=== PATIENT | male | born 1950 | race Caucasian/White ===

== ENCOUNTER → 2016-04-07 | Outpatient (CLI) | payer BC ==
[~2016-04-07] MED LIST: ACET-1256 PO; ASPI-461 PO; ATOR-22 PO; CALC625T13 PO; CHOL1CAP30 PO; CIPR-255 PO; CYM/30 PO; DOCU100C PO; DOXA4TAB2 PO; GABA600T PO; GLUC250C PO; LISI10TA PO; LISI1TAB3 PO; MELO15TA4 PO; METH1TAB66 PO; MULTTAB58 PO; OMEG10007 PO; PHEN-775 PO; ROPI0.5T15 PO; ROPI5TAB9; SIMV20TA2 PO; TAMS0.4C59 PO; TRAM-10 PO; TRAM1TAB14 PO; VGR50 PO; fiber PO
--- NOTE | 2016-04-07 10:07 | DIAGNOSTIC IMAGING REPORT ---
LEFT SHOULDER 3 VIEWS HISTORY: LEFT SHOULDER PAIN COMPARISON: None. FINDINGS: There is no fracture or dislocation. Severe osteoarthritis at the glenohumeral joint demonstrated by cartilage space narrowing and marginal osteophytes. There is moderate AC joint arthrosis. An intra-articular loose body measuring 1.3 cm adjacent to the coracoid process.. No radiopaque foreign bodies. IMPRESSION: 1. No acute fracture or dislocation within the left shoulder. 2. Degenerative changes as described above. Electronically signed by: Moy Chambers M.D. 04/07/2016 10:06 AM Dictated Date/Time: 04/07/2016 10:04 AM
== END | disposition home or self-care (01) ==
LOC: C.RAD1850 09:44
PROVIDERS: ATTEND Family Medicine
DX: M25.512 Pain in left shoulder (principal)

== ENCOUNTER → 2016-07-13 | Outpatient (CLI) | payer BC ==
[~2016-07-13] MED LIST changes: -CALC625T13 PO; -LISI10TA PO; +OPTIRAY 320 IV PRN; -ROPI5TAB9; -TAMS0.4C59 PO
--- NOTE | 2016-07-13 09:59 | DIAGNOSTIC IMAGING REPORT ---
CT UROGRAM CLINICAL HISTORY: Pelvic pain. Left scrotal pain. Chronic prostatitis. COMPARISON STUDY: Abdominal CT dated 04/26/2011. TECHNIQUE: Before and following the IV administration of 119 cc of Optiray 320, CT urogram of the abdomen and pelvis is performed from the lung bases to the proximal femora. Images are reviewed in the axial, sagittal, and coronal planes. IV contrast was administered without complication. CT DOSE: 1998.65 mGy.cm FINDINGS: Lung bases: The heart is normal in size and without pericardial effusion. There are coronary artery calcifications. A fat-containing Bochdalek hernia is noted at the left lung base. The lung bases are otherwise clear. There is a small hiatal hernia. Liver: The contrast-enhanced liver is normal in size, contour, and attenuation. There is no intrahepatic biliary ductal dilatation. The hepatic veins and portal veins are patent. Gallbladder: Unremarkable. Spleen: Normal in size and attenuation. Pancreas: Unremarkable. Adrenal glands: Unremarkable. Kidneys and ureters: The contrast enhanced kidneys are normal in size and without hydronephrosis. There are no renal calculi identified on the unenhanced images. The kidneys enhance and excrete symmetrically. Small renal cysts measure up to 3.0 cm. Additional subcentimeter cortical hypodensities also likely represent cysts but are too small for definitive characterization. There is no enhancing renal cortical mass lesion identified. There is no evidence of urothelial lesion within the renal pelvis bilaterally or along the course of either ureter. The distal ureters are not well evaluated due to streak artifact from hip arthroplasties. Abdominal vasculature: The abdominal aorta is normal in course and caliber. Bowel: The small bowel and colon are normal in course and caliber. The appendix is well-visualized and normal. Peritoneum: There is no intraperitoneal free air or abdominal ascites. There is a small fat-containing umbilical hernia. Lymphadenopathy: None. Pelvic viscera: Evaluation of the pelvis is severely degraded by streak artifact from bilateral hip arthroplasties. Surgical clips are seen along the spermatic cord bilaterally. The bladder, prostate, and seminal vesicles are not well assessed. Skeletal structures: There is moderate lumbosacral spondylosis. Large posterior disc osteophyte complexes at T12-L1, L2-L3, and L3-L4 likely contribute to acquired compromise of the central canal. Degenerative change and partial fusion is noted in the sacroiliac joints. No lytic or blastic bony lesions are seen. IMPRESSION: 1. The kidneys are normal in size and without hydronephrosis. No renal calculi are identified. 2. There is no enhancing renal cortical mass. No evidence of urothelial lesion is seen within the renal pelvis bilaterally or along the course of the ureters. 3. The bladder, prostate, and seminal vesicles were not evaluated due to extensive streak artifact from bilateral hip arthroplasties. 4. There are no acute infectious or inflammatory findings in the abdomen or pelvis. 5. Additional findings as above. Electronically signed by: Randall Gu M.D. 07/13/2016 9:58 AM Dictated Date/Time: 07/13/2016 9:24 AM
== END | disposition home or self-care (01) ==
LOC: C.CTS 08:11
PROVIDERS: ATTEND Urology
DX: R10.2 Pelvic and perineal pain (principal); N41.1 Chronic prostatitis; N50.819 Testicular pain, unspecified; Z96.641 Presence of right artificial hip joint; Z96.642 Presence of left artificial hip joint; M47.817 Spondylosis without myelopathy or radiculopathy, lumbosacral region; M25.78 Osteophyte, vertebrae; K42.9 Umbilical hernia without obstruction or gangrene; N28.1 Cyst of kidney, acquired

== ENCOUNTER → 2016-07-25 | Outpatient (CLI) | payer BC ==
[~2016-07-25] MED LIST changes: -OPTIRAY 320 IV PRN
[2016-07-25 17:11] LABS: BLOOD UREA NITROGEN 19 mg/dl (7-18); BUN/CREATININE RATIO 20.2 (10-20); CALCIUM 9.5 mg/dl (8.5-10.1); CARBON DIOXIDE 29 mmol/L (21-32); CHLORIDE 107 mmol/L (98-107); CREATININE 0.94 mg/dl (0.60-1.40); GLUCOSE 94 mg/dl (70-99); POTASSIUM 4.3 mmol/L (3.5-5.1); SODIUM 142 mmol/L (136-145)
== END | disposition home or self-care (01) ==
LOC: C.LAB1850 15:02
PROVIDERS: ATTEND Internal Medicine
DX: I10 Essential (primary) hypertension (principal)

== ENCOUNTER 2016-09-19 09:04 | Day surgery (SDC) | payer BC ==
[2016-09-11 13:37] VITALS: BMI 32.0
--- NOTE | 2016-09-11 14:03 | PAT Medication Instructions ---
Service Date Sep 11, 2016. Current Home Medication List Acetaminophen (Tylenol), 1,000 MG PO HS Aspirin (Aspirin), 162 MG PO BID Atorvastatin (Lipitor), 20 MG PO HS Cholecalciferol (Vitamin D3), 400 MG PO LUNCH Docusate Sodium (Stool Softener), 300 MG PO HS Doxazosin Mesylate (Cardura), 1 TAB PO HS Duloxetine Hcl (Cymbalta), 60 MG PO HS Fish Oil (Pratts-3), 1,000 MG PO TID Gabapentin (Neurontin), 600 MG PO QID Glucosamine-Chondroitin (Glucosamine/Chondroitin), 1 TAB PO TIDM Lisinopril (Zestril), 30 MG PO QAM Meloxicam (Meloxicam), 15 MG PO QAM Methylcellulose (Laxative) (Fiber Therapy), 500 MG PO QAM Methylcellulose (Laxative) (Fiber Therapy), 1,000 MG PO NOON/HS Multiple Vitamin (Multivitamin), 1 TAB PO QAM Ropinirole (Requip), 0.5 MG PO QPM Sildenafil Citrate (Viagra), 25-50 MG PO PRN Tramadol Er (Ultram Er ), 50-100 MG PO prn Medication Instructions For Your Scheduled Surgery - Held prior to surgery x 10days: Fish Oil (Pratts-3), 1,000 MG PO TID Glucosamine-Chondroitin (Glucosamine/Chondroitin), 1 TAB PO TIDM Aspirin (Aspirin), 162 MG PO BID (per surgeon's instructions) Meloxicam (Meloxicam), 15 MG PO QAM (per surgeon's instructions) - Hold the following medications 24 hours prior to surgery: Ropinirole (Requip), 0.5 MG PO QPM - Hold the following medications the morning of surgery: Methylcellulose (Laxative) (Fiber Therapy), 500 MG PO QAM Cholecalciferol (Vitamin D3), 400 MG PO LUNCH Sildenafil Citrate (Viagra), 25-50 MG PO PRN Multiple Vitamin (Multivitamin), 1 TAB PO QAM Lisinopril (Zestril), 30 MG PO QAM - Take the following medications the morning of surgery with a sip of water OTHERWISE NOTHING TO EAT OR DRINK AFTER MIDNIGHT: Tramadol Er (Ultram Er ), 50-100 MG PO prn (may take if needed up to 4 hours prior to surgery) Gabapentin (Neurontin), 600 MG PO QID - Take the following medications as scheduled the night before surgery: Docusate Sodium (Stool Softener), 300 MG PO HS Doxazosin Mesylate (Cardura), 1 TAB PO HS Duloxetine Hcl (Cymbalta), 60 MG PO HS Atorvastatin (Lipitor), 20 MG PO HS Acetaminophen (Tylenol), 1,000 MG PO HS Tramadol Er (Ultram Er ), 50-100 MG PO prn Gabapentin (Neurontin), 600 MG PO QID Methylcellulose (Laxative) (Fiber Therapy), 1,000 MG PO NOON/HS If you have any questions please call us at [phone] or [phone] or [phone]
--- NOTE | 2016-09-11 14:44 | DIAGNOSTIC IMAGING REPORT ---
CHEST PREADMISSION(PA/LAT) CLINICAL HISTORY: 66 years-old Male presenting with preoperative chest x-ray. TECHNIQUE: PA and lateral views of the chest were obtained. COMPARISON: 06/28/2012. FINDINGS: Cardiomediastinal silhouette normal. Lungs and pleural spaces clear. Degenerative changes of the thoracic spine. Upper abdomen normal. IMPRESSION: 1. No acute cardiopulmonary disease. Electronically signed by: Paul Anderson M.D. 09/11/2016 2:43 PM Dictated Date/Time: 09/11/2016 2:42 PM
[2016-09-11 15:42] LABS: BASO % 0.3 %; BASO ABS # 0.02 K/uL (0-0.2); COMPLETE YES; EOS % 4.1 %; HEMATOCRIT 37.5 % (42-52); IG% 0.4 %; LYMPH % 29.2 %; MEAN CELL VOLUME 95.4 fL (80-100); MEAN CORPUSCULAR HEMOGLOBIN 32.1 pg (25-34); MEAN CORPUSCULAR HGB CONC 33.6 g/dl (32-36); MEAN PLATELET VOLUME 9.5 fL (7.4-10.4); MONO % 8.3 %; NEUT % 57.7 %; PLATELET COUNT 260 K/uL (130-400); RED BLOOD COUNT 3.93 M/uL (4.7-6.1); WHITE BLOOD COUNT 6.84 K/uL (4.8-10.8)
[2016-09-11 15:54] LABS: BUN/CREATININE RATIO 23.9 (10-20); CALCIUM 10.2 mg/dl (8.5-10.1); CREATININE 1.3 mg/dl (0.60-1.40); POTASSIUM 4.9 mmol/L (3.5-5.1)
[2016-09-11 16:16] LABS: URINE APPEARANCE CLEAR (CLEAR); URINE BILIRUBIN NEG (NEG); URINE COLOR YELLOW; URINE EPITHELIAL CELL AUTO >30 /lpf (0-5); URINE NITRITE NEG (NEG); URINE PH 7.5 (4.5-7.5); URINE SPECIFIC GRAVITY 1.016 (1.000-1.030); UROBILINOGEN NEG (NEG)
[2016-09-11 16:41] LABS: MANUAL MICROSCOPIC REQUIRED? NO; REVIEW REQ? YES; SULFASALICYLIC ACID NEG (NEG)
[~2016-09-19] VITALS: Ht 180.3 cm; Wt 103.7 kg
[~2016-09-19 09:04] MED LIST changes: -CIPR-255 PO; +CIPROFLOXACIN / D5W 400 MG IV SCH; +DEXAMETHASONE SOD INJ 4 MG/ML VIAL ONE; +FENTANYL CITRATE INJ 50 MCG/1 ML 2 ML VIAL ONE; +LACTATED RINGER'S 1000ML 1,000 ML IV SCH; +LACTATED RINGER'S 1000ML 500 ML IV ONE; +LIDOCAINE HCL 2% 2 ML VIAL (20MG/ML) ONE; +MIDAZOLAM HCL 1 MG/ML 2ML VIAL ONE; +ONDANSETRON INJ 2 MG/ML 2 ML VIAL ONE; -PHEN-775 PO; +PROPOFOL IV EMULSION 10 MG/ML 20 ML VIAL IV ONE; -SIMV20TA2 PO; -TRAM-10 PO; -fiber PO
--- NOTE | 2016-09-19 09:39 | History & Physical Bridge Note ---
H&P Re-Evaluation Bridge Note: I have examined the patient, reviewed the History & Physical and in the interval since the performance of the History & Physical I have noted the following changes of clinical significance: No changes noted
[2016-09-19 09:47] VITALS: BP 170/79; PULSE 73; TEMP 37.1; O2SAT 98; Ht 180.3 cm; Wt 103.7 kg
--- NOTE | 2016-09-19 10:11 | Discharge Instructions ---
Discharge Instructions Date of Service Sep 19, 2016. Admission Reason for Admission: Bladder Ulcer Discharge Discharge Diagnosis / Problem: bladder pain/ulceration Discharge Goals Goal(s): Decrease discomfort, Improve function, Increase independence, Improve disease control Activity Recommendations Activity Limitations: resume your previous activity Lifting Limitations: none Exercise/Sports Limitations: none May Resume Sexual Activity: when tolerated Shower/Bathe: no limitations Driving or Machine Use: resume 1 day after discharge . Instructions / Follow-Up Instructions / Follow-Up Please keep your previously scheduled follow up appointment with Dr. Smith Discharge Diet Recommended Diet: Regular Diet Pending Studies Studies pending at discharge: no Medical Emergencies . Who to Call and When: Medical Emergencies: If at any time you feel your situation is an emergency, please call 911 immediately. . Non-Emergent Contact Non-Emergency issues call your: Urologist Call Non-Emergent contact if: you have a fever, temperature is above 101.5, your pain is not controlled, your pain is worsening . . "Provider Documentation" section prepared by Bhupinder Abdullahi. . VTE Core Measure Inpt VTE Proph given/why not?: Treatment not indicated [place] Drug Monitoring Program Search Results: patient reviewed within database, no issues identified Drug Monitoring Findings: Numerous rx's for tramadol, all seem to be appropriate
[2016-09-19] MEDS ORDERED: NURSING VERBAL MED ORDER ONE (10:15)
[2016-09-19] MEDS ORDERED: CIPR-255 PO (10:20)
[2016-09-19] MEDS ORDERED: PHEN-775 PO (10:20)
[2016-09-19] MEDS ORDERED: TRAM-10 PO (10:20)
[2016-09-19] MEDS ORDERED: EpHEDrine SULFATE INJ 50 MG/ML AMP ONE (10:26)
[2016-09-19] MEDS ORDERED: TRAMADOL/ACETAMINOPHEN 37.5/325MG TAB PO PRN (10:45)
[2016-09-19] MEDS ORDERED: SODIUM CHLORIDE 0.9% 1000ML 1,000 ML IV SCH (10:45)
[2016-09-19] MEDS ORDERED: ACETAMINOPHEN 325 MG TAB PO PRN (10:45)
--- NOTE | 2016-09-19 10:53 | [facility] Operative Report ---
Operative Report Operative Date Sep 19, 2016. Pre-Operative Diagnosis Bladder lesion Post-Operative Diagnosis Bladder lesion Procedure(s) Performed Cystoscopy, Bladder Biopsy; Fulguration Surgeon Sarah Supervisor Customer Records Division Surgeon(s) none Estimated Blood Loss 2cc Findings Bladder ulcer on anterior wall Specimens A: Bladder Biopsy Anesthesia Gen. Complication(s) None Disposition Recovery Room / PACU Indications Bladder discomfort Description of Procedure Ld Forman was identified in the preoperative holding area, appropriate informed consents were reviewed and completed and the patient was transported to the operating suite. Upon arrival he received appropriate preoperative antibiotics in the form of ciprofloxacin, adequate general anesthesia was achieved, and he was placed in dorsal lithotomy position where he was sterilely prepped and draped in standard fashion. I begin the case by passing a 24 German resectoscope with 30 lens and visual obturator. Inspection of the urethra revealed no stricture disease. Prostate was moderately enlarged with lateral lobe hypertrophy. Section the bladder was carried out utilizing both a 30 and 70 lens. The ulcerated area on anterior bladder wall was easily identified. There was no active bleeding nor papillary bladder tumors appreciated. Following my full inspection I exchanged visual ethylbenzene converter operator for a cold cup biopsy element. 2 c cup biopsies of the ulcerated area were taken. I then exchanged the biopsy device for a cautery loop and fulgurated the base of this lesion. I treated all of the erythematous and ulcerated area and ensured excellent hemostasis before concluding the cystoscopic portion of the case. After confirming excellent hemostasis emptied the bladder and withdrew my scope. Patient was extubated and taken to the PACU in stable condition. I attest to the content of the Intraoperative Record and any orders documented therein. Any exceptions are noted below.
[2016-09-19] MEDS ORDERED: LABETALOL HCL IV 5 MG/ML 20ML IV PRN (11:00)
[2016-09-19] MEDS ORDERED: ATROPINE SULFATE 0.1 MG/ML 5ML SYR IV PRN (11:00)
[2016-09-19] MEDS ORDERED: FENTANYL CITRATE INJ 50 MCG/1 ML 2 ML VIAL IV PRN (11:00)
[2016-09-19] MEDS ORDERED: ONDANSETRON INJ 2 MG/ML 2 ML VIAL IV PRN (11:00)
[2016-09-19 11:35] VITALS: BP 144/84; PULSE 75; TEMP 36.7; O2SAT 93
--- NOTE | 2016-09-19 12:03 | Anesthesiology Progress Note ---
Anesthesia Post Op Note Date & Time Sep 19, 2016 at 12:03 Vital Signs Pain Intensity: 2 Vital Signs Past 12 Hours Date Time Temp Pulse Resp B/P (MAP) Pulse Ox O2 Delivery O2 Flow Rate FiO2 09/19/16 11:30 66 17 141/41 95 Room Air 09/19/16 11:20 36.2 64 12 137/60 93 Room Air 09/19/16 11:10 68 13 114/53 95 Room Air 09/19/16 11:00 61 19 115/59 98 Oxymask 10 09/19/16 10:50 36.4 64 18 119/60 98 Oxymask 10 09/19/16 09:47 37.1 73 18 170/79 (109) 98 Room Air Notes Mental Status: alert / awake / arousable, participated in evaluation Pt Amnestic to Procedure: Yes Nausea / Vomiting: adequately controlled Pain: adequately controlled Airway Patency, RR, SpO2: stable & adequate BP & HR: stable & adequate Hydration State: stable & adequate Anesthetic Complications: no major complications apparent
[2016-09-19 12:10] VITALS: BP 138/71; PULSE 66; TEMP 36.3; O2SAT 95
[2016-09-19 12:55] VITALS: BP 143/67; PULSE 72; TEMP 36.6; O2SAT 93
[2016-09-19 13:50] VITALS: BP 129/58; PULSE 68; TEMP 36.6; O2SAT 92
== END 2016-09-19 14:45 | disposition home or self-care (01) ==
LOC: C.ACU 09:04
PROVIDERS: ATTEND Urology
DX: N30.20 Other chronic cystitis without hematuria (principal); N40.1 Benign prostatic hyperplasia with lower urinary tract symptoms; N13.8 Other obstructive and reflux uropathy; N41.1 Chronic prostatitis; R35.1 Nocturia; R35.0 Frequency of micturition; E78.00 Pure hypercholesterolemia, unspecified; E78.5 Hyperlipidemia, unspecified; Z80.1 Family history of malignant neoplasm of trachea, bronchus and lung; Z82.49 Family history of ischemic heart disease and other diseases of the circulatory system; Z83.3 Family history of diabetes mellitus; Z87.891 Personal history of nicotine dependence; Z79.899 Other long term (current) drug therapy; Z79.82 Long term (current) use of aspirin; Z79.84 Long term (current) use of oral hypoglycemic drugs

== ENCOUNTER → 2017-02-14 | Outpatient (CLI) | payer OTHER ==
[~2017-02-14] MED LIST changes: +CIPR-255 PO; -CIPROFLOXACIN / D5W 400 MG IV SCH; -DEXAMETHASONE SOD INJ 4 MG/ML VIAL ONE; -FENTANYL CITRATE INJ 50 MCG/1 ML 2 ML VIAL ONE; -LACTATED RINGER'S 1000ML 1,000 ML IV SCH; -LACTATED RINGER'S 1000ML 500 ML IV ONE; -LIDOCAINE HCL 2% 2 ML VIAL (20MG/ML) ONE; +LISI-863 PO; -LISI1TAB3 PO; +MELO-83 PO; -MELO15TA4 PO; -MIDAZOLAM HCL 1 MG/ML 2ML VIAL ONE; -ONDANSETRON INJ 2 MG/ML 2 ML VIAL ONE; -PROPOFOL IV EMULSION 10 MG/ML 20 ML VIAL IV ONE; +RXC5 PO; +TRAM-10 PO
== END | disposition home or self-care (01) ==
LOC: C.CTS 12:22
PROVIDERS: ATTEND Orthopaedic Surgery
DX: M19.90 Unspecified osteoarthritis, unspecified site (principal)

== ENCOUNTER 2017-03-16 08:25 | Inpatient (IN) | payer BC, OTHER ==
[2017-02-14 11:31] VITALS: BMI 32.0
--- NOTE | 2017-02-14 12:04 | PAT Medication Instructions ---
Service Date Feb 14, 2017. Current Home Medication List Aspirin (Aspirin), 81 MG PO BID Atorvastatin (Lipitor), 20 MG PO HS Docusate Sodium (Stool Softener), 300 MG PO HS Doxazosin Mesylate (Cardura), 1 TAB PO HS Duloxetine Hcl (Cymbalta), 60 MG PO HS Fish Oil (Douglas-3), 1,000 MG PO TID Gabapentin (Neurontin), 600 MG PO QID Glucosamine-Chondroitin (Glucosamine/Chondroitin), 1 TAB PO BID Lisinopril (Zestril), 30 MG PO QAM Meloxicam (Meloxicam), 15 MG PO QAM Methylcellulose (Laxative) (Fiber Therapy), 500 MG PO QAM Methylcellulose (Laxative) (Fiber Therapy), 1,000 MG PO NOON/HS Multiple Vitamin (Multivitamin), 1 TAB PO QAM Ropinirole (Requip), 2 TAB PO QPM Ropinirole (Requip), 0.5 MG PO HS Medication Instructions For Your Scheduled Surgery - Check with surgeon for instructions: Meloxicam (Meloxicam), 15 MG PO QAM Aspirin (Aspirin), 81 MG PO BID - Hold the following medications 2 weeks prior to surgery: Glucosamine-Chondroitin (Glucosamine/Chondroitin), 1 TAB PO BID Fish Oil (Douglas-3), 1,000 MG PO TID - Hold the following medications 24 hours prior to surgery: Ropinirole (Requip), 2 TAB PO QPM Ropinirole (Requip), 0.5 MG PO HS - Hold the following medications the morning of surgery: Lisinopril (Zestril), 30 MG PO QAM Methylcellulose (Laxative) (Fiber Therapy), 500 MG PO QAM Multiple Vitamin (Multivitamin), 1 TAB PO QAM - Take the following medications the morning of surgery with a sip of water: Gabapentin (Neurontin), 600 MG PO QID - Take the following medications as scheduled the night before surgery: Methylcellulose (Laxative) (Fiber Therapy), 1,000 MG PO NOON/HS Gabapentin (Neurontin), 600 MG PO QID Duloxetine Hcl (Cymbalta), 60 MG PO HS Atorvastatin (Lipitor), 20 MG PO HS Docusate Sodium (Stool Softener), 300 MG PO HS Doxazosin Mesylate (Cardura), 1 TAB PO HS If you have any questions please call us at [phone] or [phone] or [phone]
[2017-02-14 12:56] LABS: BASO % 0.5 %; BASO ABS # 0.03 K/uL (0-0.2); EOS % 6.5 %; EOS ABS # 0.38 K/uL (0-0.5); HEMATOCRIT 39.3 % (42-52); HEMOGLOBIN 13.8 g/dL (14.0-18.0); IG# 0.01 K/uL (0.00-0.02); LYMPH % 35.1 %; LYMPH ABS # 2.04 K/uL (1.2-3.4); MEAN CORPUSCULAR HGB CONC 35.1 g/dl (32-36); MEAN PLATELET VOLUME 9.4 fL (7.4-10.4); MONO % 8.8 %; MONO ABS # 0.51 K/uL (0.11-0.59); NEUT % 48.9 %; NEUT ABS # 2.84 K/uL (1.4-6.5); PLATELET COUNT 243 K/uL (130-400); RED CELL DISTRIBUTION WIDTH CV 12.6 % (11.5-14.5); WHITE BLOOD COUNT 5.81 K/uL (4.8-10.8)
[2017-02-14 13:04] LABS: PTT PATIENT 26.6 SECONDS (21.0-31.0)
[2017-02-14 13:40] LABS: CALCIUM 10.6 mg/dl (8.5-10.1); CREATININE 0.99 mg/dl (0.60-1.40); POTASSIUM 4.8 mmol/L (3.5-5.1)
--- NOTE | 2017-03-15 10:34 | HISTORY & PHYSICAL EXAMINATION ---
DATE OF ADMISSION: 03/16/2017 PREOPERATIVE DIAGNOSIS: Advanced osteoarthritis of the left shoulder. HISTORY OF PRESENT ILLNESS: Ld is a very pleasant 66-year-old male who has been dealing with a 2-year history of increasing left shoulder pain. He initially fell while walking to acquire a loft. 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 X-rays and clinical examination demonstrated an advanced osteoarthritis of the shoulder. After failing conservative treatment, he elected to proceed with a left total shoulder arthroplasty. PAST MEDICAL HISTORY: Significant for heart murmur, hypertension, hyperlipidemia, and osteoarthritis. MEDICATIONS: Include aspirin 81 mg daily, Lipitor 20 mg daily, Cardura 4 mg at night, Cymbalta 60 mg at night, Neurontin 600 mg 4 times a day, glucosamine and chondroitin, Zestril 30 mg daily, meloxicam 15 mg daily, Requip 1 mg at night. PAST SURGICAL HISTORY: Significant for bilateral hip replacements, left total knee arthroplasty and left eye surgery. ALLERGIES: INCLUDE PENICILLIN. FAMILY HISTORY: Denies. SOCIAL HISTORY: He denies any tobacco use. He drinks about 2 alcoholic drinks a week. 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 REVIEW OF SYSTEMS: He complains mostly of left shoulder pain. All other pertinent review of systems is negative. PHYSICAL EXAMINATION: GENERAL: He is awake, alert and oriented x3. He is in no apparent distress. He is very pleasant. HEENT: Pupils are equal, round and reactive to light. Extraocular motion is intact. Oral mucosa is pink and moist. HEART: Regular rate per radial pulse. LUNGS: Queta symmetrically bilaterally with no audible breath sounds. ABDOMEN: Soft, nontender, nondistended. MUSCULOSKELETAL: On physical examination of his shoulder, he has about 125 degrees of forward flexion, 110 degrees of abduction. He has 5/5 muscle strength is full can testing and 5/5 muscle strength with external rotation. He has crepitus with range of motion beyond this. He has tenderness to palpation over the anterior glenohumeral joint line. IMAGING DATA: X-rays of the left shoulder do show advanced osteoarthritis. There is flattening of the humeral head and inferior osteophyte formation. There is joint space narrowing and subchondral sclerosis. IMPRESSION: Advanced osteoarthritis of the left shoulder. PLAN: We will proceed with a left total shoulder arthroplasty. Postoperatively, he will be placed in an arm sling and kept overnight for postoperative medical management.
[2017-03-16] VITALS (8 sets, daily range): BP systolic 134–164; BP diastolic 72–89; PULSE 74–96; TEMP 36.1–37.2; O2SAT 93–98; Ht 177.8 cm; Wt 103.0 kg
[~2017-03-16] VITALS: Ht 177.8 cm; Wt 103.0 kg
[~2017-03-16 08:25] MED LIST changes: -ACET-1256 PO; +ACETAMINOPHEN 500 MG TAB PO SCH; -CHOL1CAP30 PO; -CIPR-255 PO; +FAMOTIDINE 20 MG TAB PO SCH; +GABAPENTIN 300 MG CAP PO SCH; +LACTATED RINGER'S 1000ML 1,000 ML IV SCH; +LACTATED RINGER'S 1000ML IV SCH; -LISI-863 PO; +LISI1TAB3 PO; -MELO-83 PO; +MELO15TA4 PO; +ROPIVACAINE 0.5% 5 MG/ML 30 ML VIAL ONE; +ROPIVACAINE 5MG/ML 30 ML 150 MG, BUPIVACAINE 0.5% MPF INJ 30 ML, EpINEphrine HCL INJ 0.... INFIL SCH; -RXC5 PO; -TRAM-10 PO; -TRAM1TAB14 PO; +VANCOMYCIN INJ 1,500 MG in SODIUM CHLORIDE 0.9% 500ML 500 ML IV SCH; -VGR50 PO
[2017-03-16] MEDS ORDERED: FENTANYL CITRATE INJ 50 MCG/1 ML 2 ML VIAL IV PRN (10:30)
[2017-03-16] MEDS ORDERED: ATROPINE SULFATE 0.1 MG/ML 5ML SYR IV PRN (10:30)
[2017-03-16] MEDS ORDERED: EpHEDrine SULFATE INJ 50 MG/ML AMP IV PRN (10:30)
[2017-03-16] MEDS ORDERED: ONDANSETRON INJ 2 MG/ML 2 ML VIAL IV PRN ×2 (10:30→13:45)
[2017-03-16] MEDS ORDERED: FENTANYL CITRATE INJ 50 MCG/1 ML 2 ML VIAL ONE (10:31)
[2017-03-16] MEDS ORDERED: MIDAZOLAM HCL 1 MG/ML 2ML VIAL ONE (10:31)
[2017-03-16] MEDS ORDERED: BACITRACIN 50000 UNIT VIAL ONE (11:53)
[2017-03-16] MEDS ORDERED: ORTHO JOINT ANESTHETIC ONE (11:53)
[2017-03-16] MEDS: TRANEXAMIC ACID INJ 1,000 MG in SYRINGE 0 ML IV SCH ×2 (11:59→15:45)
[2017-03-16] MEDS ORDERED: EpHEDrine SULFATE 50MG/5ML SYR ONE (12:46)
[2017-03-16] MEDS ORDERED: PHENYLEPHRINE 100MCG/ML 5ML SYR ONE (12:46)
[2017-03-16] MEDS ORDERED: LIDOCAINE HCL 2% 2 ML VIAL (20MG/ML) ONE (12:46)
[2017-03-16] MEDS ORDERED: PROPOFOL IV EMULSION 10 MG/ML 20 ML VIAL IV ONE ×2 (12:46→14:14)
[2017-03-16] MEDS ORDERED: VASOPRESSIN 20 UNIT/ML VIAL ONE (13:00)
[2017-03-16] MEDS ORDERED: ROCURONIUM BROMIDE 10 MG/ML 5 ML VIAL IV ONE (13:00)
--- NOTE | 2017-03-16 13:44 | [facility] Post Operative Brief Note ---
Immediate Operative Summary Operative Date Mar 16, 2017. Pre-Operative Diagnosis Advanced Osteoarthritis Left Shoulder Post-Operative Diagnosis Advanced Osteoarthritis Left Shoulder Procedure(s) Performed Left Total Shoulder Arthroplasty--Cemented Surgeon Dr. Pérez Esol Teacher Assistant Surgeon(s) CONNOR Mock Estimated Blood Loss 200 ml Findings Consistent with Post-Op Diagnosis Specimens A. Portion of Left Humeral Head Drains None Anesthesia Type General Regional Complication(s) none Disposition Disposition: Recovery Room / PACU
[2017-03-16] MEDS ORDERED: MAGNESIUM HYDROXIDE SUSP 30 ML UDC PO PRN (13:45)
[2017-03-16] MEDS ORDERED: METOCLOPRAMIDE HCL INJ 5 MG/ML 2 ML VIAL IV PRN (13:45)
[2017-03-16] MEDS ORDERED: NALOXONE HCL 0.4 MG/1 ML VIAL/CARP IV PRN (13:45)
[2017-03-16] MEDS ORDERED: BISACODYL 10 MG SUPP PR PRN (13:45)
[2017-03-16] MEDS ORDERED: OXYCODONE HCL IR 5 MG TAB (IMMEDIATE RELEASE) PO PRN (13:45)
[2017-03-16] MEDS ORDERED: SOD PHOSPHATE/SOD BIPHOSPHATE ENEMA 132 ML BTL PR PRN (13:45)
[2017-03-16] MEDS ORDERED: MoRPHine SULFATE 2 MG/ML CARP IV PRN (13:45)
[2017-03-16] MEDS ORDERED: CEFAZOLIN IV 2,000 MG in DEXTROSE 5% 50ML 50 ML IV SCH (13:45)
--- NOTE | 2017-03-16 14:05 | OPERATIVE REPORT ---
DATE OF OPERATION: 03/16/2017 PREOPERATIVE DIAGNOSIS: Osteoarthritis of the left shoulder. POSTOPERATIVE DIAGNOSIS: Same. PROCEDURE: Left total shoulder arthroplasty. SURGEON: Dr. Kelton Pérez. FLOOR WINDER: Van Mayres PA-C, whose assistance was necessary for positioning the arm and helping with instrumentation. ANESTHESIA: General with a left interscalene nerve block. COMPLICATIONS: None. CONDITION: Stable to PACU. INDICATIONS: Ld is a pleasant 66-year-old male who presented to my office with chronic left shoulder pain. X-rays and clinical examination were diagnostic for primary osteoarthritis of the left shoulder. After failing conservative treatment, he elected to undergo a left total shoulder arthroplasty. OPERATION AND FINDINGS: On 03/16/2017 he arrived at [facility] for the above procedure. He was seen in the preoperative holding area and the operative extremity was identified and signed. He was given a preoperative antibiotic and a left interscalene nerve block. He was taken back to the operating room, laid on the table in supine position and put under general anesthesia. He was then put into the beachchair position. The left shoulder was prepped and draped in sterile fashion. Time-out was done and the patient and operative extremity was properly identified. A deltopectoral approach was used. Dissection was taken down through the fascia and the anterior shoulder was exposed. The long head of the biceps tendon was tenodesed to the upper border of the pec major and the subscapularis was tenotomized off the lesser tuberosity with a centimeter of cuff tissue remaining. The humerus was dislocated out of the joint. The supraspinatus and infraspinatus were intact. A canal finding reamer was sent down the center of the humeral canal. Sequential reaming up to a size 16 reamer was done and off the final reamer, a proximal humeral resection guide was placed and the proximal humerus was resected at 30 degrees of retroversion and 135 degrees of inclination. The head was removed and the glenoid was exposed. The remainder of the biceps tendon was removed and the anterior superior labrum was removed. The remainder of the labrum was left intact. A [employer] signature guide was then placed on the anterior-superior glenoid. A guide pin was placed in the total shoulder arthroplasty hole. The glenoid measured to be a medium. A medium reamer was used to ream down the glenoid. The central boss was drilled followed by 3 peripheral peg holes. The medium glenoid was then cemented into place. The proximal humerus was then exposed. Sequential broaching up to a size 16 broach was done. A size 50 x 21 mm head was trialed, the shoulder was brought through a full range of motion and seemed to be stable. The trials were then removed, the final size 16 humeral stem was impacted into place. A 50 x 21 mm eccentric humeral head was then impacted on the stem and the shoulder was reduced, brought through a full range of motion and felt to be stable. The subscapularis was then tenodesed back to the lesser tuberosity with transosseous FiberWire sutures and [id number] sutures. The surrounding soft tissues were injected with 100 mL of orthopedic pain control cocktail. The wound was then irrigated with 3 liters of normal saline solution with bacitracin. The axillary nerve was palpated. A drain was placed. Skin was closed with 2-0 Vicryl, 3-0 V-Loc suture and basia. He was placed in a soft dressing and a regular arm sling. He was then extubated, transferred to a litter and taken to the postanesthesia care unit in stable condition. He tolerated the procedure well. I attest to the content of the Intraoperative Record and any orders documented therein. Any exception s are noted below.
--- NOTE | 2017-03-16 14:28 | DIAGNOSTIC IMAGING REPORT ---
LEFT SHOULDER 2 VIEWS. CLINICAL HISTORY: Postoperative examination. FINDINGS: 2 portable views of the left shoulder are obtained. The skeletal structures are osteopenic. A left shoulder arthroplasty is in near-anatomic alignment. No acute fracture is seen. Productive degenerative change is noted at the acromioclavicular joint. There are expected postoperative findings overlying the left shoulder including skin clips, a surgical drain, subcutaneous gas, and soft tissue swelling. IMPRESSION: Expected postoperative findings status post left shoulder arthroplasty. No acute fracture is seen. Electronically signed by: Randall uG M.D. 03/16/2017 2:27 PM Dictated Date/Time: 03/16/2017 2:26 PM
--- NOTE | 2017-03-16 15:00 | Anesthesiology Progress Note ---
Anesthesia Post Op Note Date & Time Mar 16, 2017 at 15:00 Vital Signs Pain Intensity: 0 Vital Signs Past 12 Hours Date Time Temp Pulse Resp B/P (MAP) Pulse Ox O2 Delivery O2 Flow Rate FiO2 03/16/17 14:45 36.4 77 16 154/81 95 Nasal Cannula 2 03/16/17 14:35 73 20 148/81 96 Nasal Cannula 2 03/16/17 14:25 78 20 158/82 98 Oxymask 10 03/16/17 14:15 76 20 134/85 98 Oxymask 10 03/16/17 14:07 36.2 88 20 142/81 98 Oxymask 10 03/16/17 08:54 36.1 93 16 134/87 94 Room Air Notes Mental Status: alert / awake / arousable, participated in evaluation Pt Amnestic to Procedure: Yes Nausea / Vomiting: adequately controlled Pain: adequately controlled Airway Patency, RR, SpO2: stable & adequate BP & HR: stable & adequate Hydration State: stable & adequate Anesthetic Complications: no major complications apparent
[2017-03-16] MEDS: GABAPENTIN 600 MG TAB PO SCH ×2 (17:04→21:14)
[2017-03-16] MEDS: POTASSIUM CHLORIDE INJ 10 MEQ in SODIUM CHLORIDE 0.9% 1000ML 1,000 ML IV SCH (17:04)
[2017-03-16] MEDS: ACETAMINOPHEN IV 1,000 MG in EMPTY BAG 0 ML IV SCH (17:58)
[2017-03-16] MEDS: CEFAZOLIN IV 2,000 MG in SYRINGE 5 ML IV SCH (17:58)
[2017-03-16] MEDS: KETOROLAC TROMETHAMINE 15 MG/ML VIAL IV. SCH ×2 (17:59→23:24)
[2017-03-16] MEDS ORDERED: ROPINIROLE HCL 0.25 MG TAB PO SCH (21:00)
[2017-03-16] MEDS ORDERED: DOXAZosin MESYLATE TAB 4 MG TAB PO SCH (21:00)
[2017-03-16] MEDS ORDERED: SENNA 8.6 MG TAB PO SCH (21:00)
[2017-03-16] MEDS ORDERED: ROPINIROLE HCL 1 MG TAB PO SCH ×2 (21:00)
[2017-03-16] MEDS ORDERED: DULOXETINE HCL 60 MG CAP PO SCH (21:00)
[2017-03-16] MEDS ORDERED: ATORVASTATIN 20 MG TAB PO SCH (21:00)
[2017-03-16] MEDS: ASPIRIN 81 MG ECTAB PO SCH (21:16)
[2017-03-16] MEDS: DOCUSATE SODIUM 100 MG CAP PO SCH (21:17)
[2017-03-17] MEDS: ACETAMINOPHEN IV 1,000 MG in EMPTY BAG 0 ML IV SCH ×2 (02:04→09:52)
[2017-03-17] MEDS: POTASSIUM CHLORIDE INJ 10 MEQ in SODIUM CHLORIDE 0.9% 1000ML 1,000 ML IV SCH (02:04)
[2017-03-17] MEDS: CEFAZOLIN IV 2,000 MG in SYRINGE 5 ML IV SCH (02:04)
[2017-03-17 04:22] VITALS: BP 130/73; PULSE 62; TEMP 36.8; O2SAT 94
[2017-03-17] MEDS: KETOROLAC TROMETHAMINE 15 MG/ML VIAL IV. SCH (05:14)
[2017-03-17 06:11] LABS: HEMATOCRIT 32.6 % (42-52); HEMOGLOBIN 11.2 g/dL (14.0-18.0); MEAN CELL VOLUME 92.6 fL (80-100); MEAN CORPUSCULAR HEMOGLOBIN 31.8 pg (25-34); MEAN CORPUSCULAR HGB CONC 34.4 g/dl (32-36); MEAN PLATELET VOLUME 9.5 fL (7.4-10.4); PLATELET COUNT 226 K/uL (130-400); RED CELL DISTRIBUTION WIDTH CV 12.1 % (11.5-14.5); RED CELL DISTRIBUTION WIDTH SD 41.2 fL (36.4-46.3); WHITE BLOOD COUNT 12.68 K/uL (4.8-10.8)
[2017-03-17 06:40] LABS: CREATININE 1.24 mg/dl (0.60-1.40); POTASSIUM 4.3 mmol/L (3.5-5.1)
[2017-03-17 07:25] VITALS: BP 139/64; PULSE 70; TEMP 36.6; O2SAT 96
[2017-03-17 07:52] VITALS: BP 139/64; PULSE 70; TEMP 36.6; O2SAT 96
[2017-03-17] MEDS: ASPIRIN 81 MG ECTAB PO SCH (08:44)
[2017-03-17] MEDS: GABAPENTIN 600 MG TAB PO SCH (08:44)
[2017-03-17] MEDS: DOCUSATE SODIUM 100 MG CAP PO SCH (08:44)
[2017-03-17] MEDS ORDERED: MULTIVITAMIN TAB PO SCH (09:00)
[2017-03-17] MEDS ORDERED: LISINOPRIL 20 MG TAB PO SCH (09:00)
[2017-03-17] MEDS ORDERED: RXC5 PO (09:45)
--- NOTE | 2017-03-17 09:47 | Discharge Instructions ---
Discharge Instructions Date of Service Mar 17, 2017. Admission Reason for Admission: Left Shoulder Degenerative Joint Disease Discharge Discharge Diagnosis / Problem: Left Total shoulder Discharge Goals Goal(s): Decrease discomfort, Improve function Activity Recommendations Activity Limitations: as noted below . Instructions / Follow-Up Instructions / Follow-Up Activity and Therapy Recommendations: * Wear your sling for 3 weeks, unless otherwise instructed. You may remove your sling to shower and to dress, but otherwise, you should be in your sling at all times, including while sleeping * The shoulder replacement is very stable and you can use your hand while in the sling * Physical Therapy should start about 3-5 days from your day of surgery. Therapy will last about 8-12 weeks * You were shown a series of exercises in the hospital. Do these exercises daily including the exercises you were shown in physical therapy. Medications: * Narcotic You will likely be sent home from the hospital with a prescription for the narcotic pain medication that worked best throughout your stay. * Other medications may be prescribed for specific circumstances. If you have any questions, please call the office at . * Resume previous home medications unless otherwise instructed Showering: You may shower 5 days from the day of surgery. Let the soapy shower water run over the basia. Do not scrub or soak the incision. Things To Watch For: * Drainage from the incision site that occurs more than one week after your surgery. * Increased redness at the incision site. * Fever above 102 degrees Fahrenheit. * Unusual chest pain or shortness of breath. * Call [facility] at with any of the above problems Follow-Up Visit: Follow-up with Dr. Pérez 2 weeks after your day of surgery. An appointment was probably scheduled when you signed-up for surgery in the office. If you have any questions call Office Instructions: More detailed instructions as well as Frequently Asked Questions were provided in a folder by our office when you signed-up for surgery. Please review these instructions when you get home. If you have any further questions or concerns, please feel free to call the office at [phone] Current Hospital Diet Patient's current hospital diet: Regular Diet Discharge Diet Recommended Diet: Regular Diet Procedures Procedures Performed: Left Total Shoulder Arthroplasty--Cemented Pending Studies Studies pending at discharge: no Medical Emergencies . Who to Call and When: Medical Emergencies: If at any time you feel your situation is an emergency, please call 911 immediately. . Non-Emergent Contact Non-Emergency issues call your: Surgeon Call Non-Emergent contact if: wound has increased drainage, wound has increased redness . "Provider Documentation" section prepared by Kelton Pérez. . VTE Core Measure Inpt VTE Proph given/why not?: Treatment not indicated
--- NOTE | 2017-03-17 10:14 | PROGRESS NOTE ---
DATE: 03/17/2017 CHIEF COMPLAINT: Status post left total shoulder arthroplasty, postop day #1. PROGRESS: Ld was seen and examined at bedside today. He was sitting up in the chair and eating breakfast. He has had very little pain in his left shoulder. He is very happy with his progress and has no complaints. PHYSICAL EXAMINATION: LEFT SHOULDER: The dressing is clean and dry and the drain is to suction. His radial, median and ulnar nerves were all checked and intact. He is wearing a sling as instructed. His axillary nerve was not checked yet. LABORATORY DATA: He has an H&H today of 11.2 and 32.6. His vital signs are all stable on room air and he is voiding on his own. X-rays postoperatively of the left shoulder show the prosthesis to be in an alignment without any evidence of fracture, dislocation or loosening. IMPRESSION: Status post left total shoulder arthroplasty, postop day #1. PLAN: At this point, he is doing well and happy with his progress. Therapy will see him today and do hand, wrist, elbow and pendulum exercises. The nursing staff can change the dressing, pull the drain and discharge him home later this morning.
--- NOTE | 2017-03-17 10:31 | DISCHARGE SUMMARY ---
DISCHARGE DIAGNOSIS: Primary osteoarthritis of the left shoulder. PROCEDURE: Left total shoulder arthroplasty on 03/16/[address] Kelton Pérez. DISCHARGE INSTRUCTIONS: 1. Oxycodone 5-10 mg every 4 hours as needed for pain. 2. Aspirin 81 mg daily. 3. Lipitor 20 mg daily. 4. Dulcolax 300 mg at night. 5. Cardura 4 mg daily. 6. Cymbalta 60 mg at night. 7. Neurontin 600 mg 4 times a day. 8. Zestril 30 mg daily. 9. Meloxicam 15 mg daily. 10. Requip 2 tabs in the evening and 1 tab at night. 11. Continue all other vitamin supplementation and bfvv-cei-[id number] medications. 12. Left arm sling for 3 weeks. 13. Follow up with Dr. Pérez in 2 weeks. 14. Call the office of Dr. Pérez with any questions or concerns. HOSPITAL COURSE: Ld is a pleasant 66-year-old male who presented to my office with chronic left shoulder pain. X-rays and clinical examination were diagnostic for primary osteoarthritis of the left shoulder. After failing conservative treatment, he elected to undergo a left total shoulder arthroplasty. On 03/16/2017, he arrived at [facility] and underwent a left shoulder replacement without complication. He had a general anesthetic and a left interscalene nerve block. Postoperatively, he was placed in an arm sling and discharged to general orthopedic floor. His hospital course was uneventful. On postop day #1, his H&H was stable at 11.2 and 32.6. He was up and ambulating well with physical therapy and doing hand, wrist, elbow and pendulum exercises. The nursing staff then changed the dressing, pulled the drain, and he was subsequently discharged to home with the above instructions.
== END 2017-03-17 11:20 | disposition home or self-care (01) | DRG 483 ==
LOC: C.ACU 08:25 → C.3E 08:30 → ENRESERV 14:43
PROVIDERS: ADMIT Orthopaedic Surgery; ATTEND Orthopaedic Surgery
PROC: 0RRK0JZ Replacement of Left Shoulder Joint with Synthetic Substitute, Open Approach (ICD-10-PCS; principal; 2017-03-16 11:10)
DX: M19.012 Primary osteoarthritis, left shoulder (principal); I10 Essential (primary) hypertension; E78.5 Hyperlipidemia, unspecified; Z79.82 Long term (current) use of aspirin; Z79.899 Other long term (current) drug therapy; Z96.643 Presence of artificial hip joint, bilateral; Z96.652 Presence of left artificial knee joint; Z88.0 Allergy status to penicillin

== ENCOUNTER → 2017-09-13 | Outpatient (CLI) | payer OTHER ==
[~2017-09-13] MED LIST changes: -ACETAMINOPHEN 500 MG TAB PO SCH; -FAMOTIDINE 20 MG TAB PO SCH; -GABAPENTIN 300 MG CAP PO SCH; -LACTATED RINGER'S 1000ML 1,000 ML IV SCH; -LACTATED RINGER'S 1000ML IV SCH; +LISI-863 PO; -LISI1TAB3 PO; +MELO-83 PO; -MELO15TA4 PO; -ROPIVACAINE 0.5% 5 MG/ML 30 ML VIAL ONE; -ROPIVACAINE 5MG/ML 30 ML 150 MG, BUPIVACAINE 0.5% MPF INJ 30 ML, EpINEphrine HCL INJ 0.... INFIL SCH; +RXC5 PO; -VANCOMYCIN INJ 1,500 MG in SODIUM CHLORIDE 0.9% 500ML 500 ML IV SCH
== END | disposition home or self-care (01) ==
LOC: C.RDSM 11:01
PROVIDERS: ATTEND Family Medicine
DX: M25.511 Pain in right shoulder (principal)

== ENCOUNTER → 2017-09-24 | Outpatient (CLI) | payer OTHER ==
[2017-09-24 17:34] LABS: BLOOD UREA NITROGEN 14 mg/dl (7-18); CREATININE 0.79 mg/dl (0.60-1.40)
== END | disposition home or self-care (01) ==
LOC: C.LABBC 14:43
PROVIDERS: ATTEND Family Medicine
DX: M75.101 Unspecified rotator cuff tear or rupture of right shoulder, not specified as traumatic (principal)

== ENCOUNTER → 2017-09-26 | Outpatient (CLI) | payer OTHER ==
[~2017-09-26] MED LIST changes: +GADAVIST IV PRN
--- NOTE | 2017-09-26 10:54 | DIAGNOSTIC IMAGING REPORT ---
FLUOROSCOPIC GUIDED RIGHT SHOULDER ARTHROGRAM FLUOROSCOPY TIME: 10 seconds. A single fluoroscopic spot image of the right shoulder. HISTORY: Right shoulder pain.. PROCEDURE: After obtaining written informed consent, the patient was placed supine on the fluoroscopy table. A suitable site for needle insertion was marked using fluoroscopic guidance. The right shoulder was prepped and draped in the usual sterile fashion. 1% lidocaine was used for skin, subcutaneous and deep soft tissue anesthesia. Under intermittent fluoroscopic guidance, a 22 gauge 3.5 inch spinal needle was inserted into the right glenohumeral joint.A total of 14 cc of one-to-one mixture of dilute Gadavist and Optiray 300 were injected. The needle was then removed. There were no apparent complications. The patient was transported to for further imaging. IMPRESSION: Fluoroscopic-guided right shoulder arthrogram without immediate complication. Total injected volume was 14 cc. MR portion of the examination will be dictated separately. Electronically signed by: Moy Chambers M.D. 09/26/2017 10:53 AM Dictated Date/Time: 09/26/2017 10:53 AM
--- NOTE | 2017-09-26 11:51 | DIAGNOSTIC IMAGING REPORT ---
RIGHT SHOULDER MRI with INTRA-ARTICULAR CONTRAST HISTORY: RT SHOULDER PAIN, RT ROTATOR CUFF TEAR TECHNIQUE: Multiplanar multisequence MRI of the right shoulder was performed following the intra-articular injection of contrast. COMPARISON STUDY: Right shoulder radiograph 09/13/2017. FINDINGS: AC joint: Moderate edema and widening at the AC joint. There is mild superior displacement of the distal clavicle in relation to the acromium. The acromioclavicular ligaments appear to be torn. The coracoclavicular ligaments are intact. Therefore, this is consistent with a grade II AC joint separation. Rotator cuff: Increase signal and thickening within the supraspinatus tendon consistent with a tendinopathy. There appears to be a tiny partial tear at the bursal surface of the distal supraspinatus tendon. There is also a 7 mm partial tear at the bursal surface of the distal infraspinatus tendon. No fluid or contrast within the subacromial/subdeltoid bursa to suggest a full-thickness rotator cuff tear. The subscapularis and teres minor tendons are intact. Labrum: The majority the labrum is abnormal in appearance and signal intensity. This likely represents a circumferential tear/degeneration. Biceps tendon: Mild thickening and increased signal within the proximal long head of the biceps tendon. This is consistent with a tendinopathy. No evidence for full-thickness tear. Bones: No fracture or dislocation. Inferior osteophyte at the humeral head and glenoid. This is due to the degenerative change. An 8 mm T2 hyperintense lobular lesion within the distal acromion. This favors a small benign cartilaginous lesion. Cartilage: Full-thickness cartilage loss within the superior half of the glenoid and mild to moderate cartilage thinning within the inferior glenoid. There is near full-thickness cartilage loss within the majority of the humeral head. Miscellaneous: There is a 12 mm ossific density within the subcoracoid space consistent with an intra-articular loose body. IMPRESSION: 1. Small partial tears within the distal supraspinatus and infraspinatus tendons. 2. Circumferential degeneration/tear within the labrum. 3. Moderate to severe osteoarthritis at the glenohumeral joint. 4. Grade II acromioclavicular separation. 5. Additional findings as described above. Electronically signed by: Moy Chambers M.D. 09/26/2017 11:49 AM Dictated Date/Time: 09/26/2017 11:38 AM
== END | disposition home or self-care (01) ==
LOC: C.MRIBC 09:45
PROVIDERS: ATTEND Family Medicine
DX: M25.511 Pain in right shoulder (principal); M75.101 Unspecified rotator cuff tear or rupture of right shoulder, not specified as traumatic; S43.101A Unspecified dislocation of right acromioclavicular joint, initial encounter

== ENCOUNTER → 2017-10-03 | Outpatient (CLI) | payer OTHER ==
[~2017-10-03] MED LIST changes: -GADAVIST IV PRN
--- NOTE | 2017-10-03 15:59 | DIAGNOSTIC IMAGING REPORT ---
MRI OF THE CERVICAL SPINE WITHOUT IV CONTRAST CLINICAL HISTORY: Cervical radiculopathy. Right shoulder pain. COMPARISON STUDY: Radiographs of the cervical spine dated 09/26/2017. TECHNIQUE: MRI of the cervical spine is performed utilizing various T1 and T2-weighted sequences in the axial and sagittal planes. IV contrast was not administered for this examination. FINDINGS: Cervical spine: Vertebral body height is maintained throughout the cervical spine. Minimal anterolisthesis is seen at C5-C6 and C6-C7. Alignment is otherwise preserved. There is straightening of the cervical lordosis. The atlantodental articulation appears maintained, noting productive degenerative change. The spinous processes are intact. Degenerative sclerosis is noted within the spinous process of C6. There is chronic degenerative endplate change, with endplate edema seen at C6-C7. No destructive bony lesion is suggested. A hemangioma is incidentally noted in the body of T2. Intervertebral discs: Degenerative disc desiccation is seen throughout the cervical spine. Mild to moderate loss of height is noted at C6-C7. Only mild loss of height is seen at the remaining cervical levels. Spinal cord: There is mild thinning of the cervical cord at the level of C6-C7. Increased T2 signal within the cord at this level likely represents myelomalacia from chronic spinal stenosis. The cervical spinal cord is otherwise normal in morphology and signal intensity. C2-C3: Predominantly facet arthropathy causes moderate right and mild left neural foraminal stenosis. C3-C4: Uncovertebral and facet arthropathy cause severe right greater than left neural foraminal stenosis. C4-C5: A posterior disc osteophyte complex eccentric to the left effaces the ventral cord. In conjunction with hypertrophy of the ligamentum flavum, there is at least moderate central canal stenosis at this level. The minimum AP canal diameter measures 7.5 mm. Uncovertebral and facet arthropathy cause severe left greater than right neural foraminal stenosis. C5-C6: A small posterior disc osteophyte complex minimally effaces the ventral subarachnoid space. Uncovertebral and facet arthropathy contribute to moderate left greater than right neural foraminal stenosis. C6-C7: A posterior disc osteophyte complex effaces the ventral cord. In conjunction with hypertrophy of the ligamentum flavum, there is severe central canal stenosis at this level with a minimum AP diameter of 4.75 mm. Uncovertebral and facet arthropathy cause moderate to severe bilateral neural foraminal stenosis. C7-T1: The central canal and neural foramina are patent. Mild facet arthropathy is of no consequence. T1-T2: There is minimal posterior disc bulge. The central canal appears clear. Soft tissues: The prevertebral and paraspinous soft tissues are normal in appearance. Brain parenchyma: Partially visualized brain parenchyma at the skull base is normal in appearance. IMPRESSION: 1. Moderate to advanced multilevel cervical spondylosis, as above. This is greatest at C4-C5 and C6-C7. See discussion for detailed level by level analysis. 2. There is focal thinning of the cervical cord at C6-C7 with abnormal T2 signal. This likely represents myelomalacia related to severe central canal stenosis. 3. No acute osseous abnormality is identified. Dictated: 10/03/2017 3:41 PM Transcribed: 10/03/2017 3:59 PM [facility]ard Electronically signed by: Randall Gu M.D. 10/03/2017 4:06 PM Dictated Date/Time: 10/03/2017 3:41 PM
== END | disposition home or self-care (01) ==
LOC: C.MRIBC 14:36
PROVIDERS: ATTEND Orthopaedic Surgery
DX: M47.22 Other spondylosis with radiculopathy, cervical region (principal)

== ENCOUNTER 2019-03-04 08:16 | Inpatient (IN) ==
--- NOTE | 2019-02-13 09:58 | Anesthesiology Consultation ---
Date of Service February 13, 2019 Assessment & Plan (1) Encounter for pre-operative examination: - Hx glidescope intubation: C6-C7 ACDF: 11/21/17: Grade 1 view, Glidescope#3, ETT 7.5 at [facility]; LEFT TSA: 03/16/17: GRADE VIEW 1 WITH GLIDESCOPE#4 ETT 8.0 AT [facility] Chart Review Chart Review: Acceptable Risk for Surgery, entry level initiated (from V#[id number]) and Patient seen in Pre Admission Testing History Surgery Operation Date: 02/14/19 12:30 Proposed Procedures p Right Total Knee Replacement - Kelvin Ivory MD Height/Weight Height: 5 ft 11.5 in Weight: 100 kg Allergies Allergy/AdvReac Type Severity Reaction Status Date / Time Penicillins Allergy Mild UNKNOWN Verified 01/20/19 13:10 hydrocodone AdvReac Intermediate hallucinati Verified 02/07/19 13:12 ons Medications Home Medications Medication Instructions Recorded Confirmed Last Taken atorvastatin 20 mg tablet 20 mg PO QPM tab 10/21/18 01/20/19 Unknown candesartan 8 mg tablet 8 mg PO QAM tab 10/21/18 01/20/19 Unknown duloxetine 30 mg capsule,delayed 30 mg PO Q OTHER DAY cap 10/21/18 01/20/19 Unknown release celecoxib 100 mg capsule 100 mg PO BID 11/18/18 01/20/19 Unknown docusate sodium 100 mg capsule 400 mg PO QPM cap 11/18/18 01/20/19 Unknown omega-3 fatty acids 1 dose PO DAILY 11/18/18 01/20/19 Unknown Fiber-Caps (psyllium husk) 1 dose PO TID 01/16/19 01/20/19 Unknown acetaminophen [Tylenol Extra 500 mg PO Q6H PRN 01/16/19 01/20/19 Unknown Strength] dcemjgnbu-ipodrcni-vom-hyalur 1 tab PO QAM 01/16/19 01/20/19 Unknown [Move Free Ultra (boron)] gabapentin 300 mg PO DAILY 01/16/19 01/20/19 Unknown glucosamine sulfate-msm 2 cap PO BID 01/16/19 01/20/19 Unknown omeprazole magnesium [Prilosec OTC] 20 mg PO DAILY PRN 01/16/19 01/20/19 Unknown ropinirole 4 mg PO HS 01/16/19 01/20/19 Unknown Past Medical History Medical History Acid reflux controlled Hearing deficit B/L GOEL HTN (hypertension) Hyperlipidemia Obesity Osteoarthritis Restless leg syndrome Right knee DJD Spinal stenosis Exercise / Class Metabolic Activity III < 4 Walking/Shop/Light housework Past Surgical History Surgical History Difficult intubation 03/16/17= LEFT TSA= GRADE VIEW 1 WITH GLIDESCOPE#4 ETT 8.0 AT [facility] History of bladder surgery (Resolved) BLADDER ULCER REPAIR History of colonoscopy (Resolved) History of fusion of cervical spine (Resolved) 11/2017 [facility]. glidescope #3. 1 attempt. GETA. ROM WNL. History of total hip arthroplasty (Resolved) B/L History of total knee replacement (Resolved) LEFT History of total shoulder replacement (Resolved) LEFT TSA Hx of eye surgery (Resolved) SCLERAL BUCKLE Hx of vasectomy (Resolved) Hx of wisdom tooth extraction (Resolved) S/P cubital tunnel release BL Past Anesthesia History Difficult Airway (x glidescope intubation: 03/16/17= LEFT TSA= GRADE VIEW 1 WITH GLIDESCOPE#4 ETT 8.0 AT [facility]) and No Family Hx of Anesthesia Complications History of PONV No Hx of PONV and No Hx of Motion Sickness Social History Smoking Status: Former smoker tobacco type: cigarettes Do You Dip or Chew Tobacco: No Smoking End Date: Quit 1975 Hx Alcohol Use: Yes Alcohol type: beer and wine alcohol intake frequency: a few times a month Hx Substance Use: No substance use type: does not use Review of Systems Reflux controlled. Patient denies chest pain, shortness of breath, cough, wheezing, palpitations. Physical Exam Vital Signs VITALS BP 144/92 P 68 TEMP 98.7 SP02 95%RA RESP 16 PHYSICAL Decreased cervical extension s/p cervical fusion Full TMJ range of motion. TMD 3 finger breaths Mallampati Score 3 Dentition: several caps/crowns "all over" including upper front right cap/crown "loose" Lungs: clear throughout to auscultation Cardiac: regular rate and rhythm, no murmurs noted Spine: normal Carotid arteries: negative bruit Extremities: no edema Testing Laboratory Results 01/20/19 WBC 9.04 H/H 14.4/40.9 PLATELETS 275 SODIUM 137 POTASSIUM 4.0 CHLORIDE 105 CO2 26 BUN 21 CREATININE 0.88 GLUCOSE 102 PT 9.8 PTT 25.6 INR 1.0 TYPE AND SCREEN O+Ab- Electrocardiogram Date: 01/20/19 Findings: + NSR @ (78) Chest X-Ray Date: 03/25/18 The cardiac and mediastinal contours are normal. There is no evidence of focal pulmonary consolidation. There is no evidence of failure. No pleural effusions are visualized.[ There are interval postsurgical changes involving the left shoulder and lower cervical spine. No active disease in the chest.
--- NOTE | 2019-03-03 07:58 | History and Physical Report ---
DATE OF ADMISSION: 03/04/2019 CHIEF COMPLAINT: Right knee pain. HISTORY OF PRESENT ILLNESS: The patient is a 68-year-old gentleman who is well known to me from previous left knee surgery as well as hip replacement surgery. We had actually scheduled him for right knee replacement a couple of weeks ago, but he was feeling ill and postponed it. He has a long history of right knee pain and discomfort, treated over the past several years with injections as well as medicines. This has become less successful over time. He developed more and more pain with any type of activities. It is global pain. The more he walks, the more it hurts. The shots only helped him for a couple days to a week. He has nighttime pain. His knee occasionally gives out and he is concerned about falling. He has gone through various other arthroplasties and doing well with them and would like to have his right knee replaced. PAST MEDICAL HISTORY: Significant for: 1. Elevated cholesterol. 2. Hypertension. 3. Lumbar spondylosis. 4. Back pain/sciatica. 5. Cervical spine disease/arthritis. 6. Gastroesophageal reflux disease. 7. BPH. PAST SURGICAL HISTORY: Includes: 1. Bilateral total hip replacements done at different times, one by myself and one by Dr. West. 2. Left shoulder surgery done by Dr. Pérez. 3. Elbow surgery. 4. Cervical spine surgery. 5. Left total knee replacement on 03/14/2013. ALLERGIES: VICODIN. CURRENT MEDICINES: Include: 1. Tylenol as needed. 2. Atorvastatin 20 mg a day. 3. Candesartan 8 mg a day. 4. Celebrex. 5. Docusate sodium. 6. Duloxetine 30 mg every other day. 7. Gabapentin. 8. Glucosamine. 9. Fiber-Caps. 10. [place]-3 fish oil. 11. Prilosec lrba-rdj-kisvukp 20 mg a day. 12. Ropinirole 4 mg at bedtime. SOCIAL HISTORY: A 68-year-old male. 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 Does not smoke. FAMILY HISTORY: Noncontributory. REVIEW OF HISTORY: Negative for diabetes, neurologic problem, vascular problems or bleeding disorders. Denies any chest pain or shortness of breath. No history of DVT or PE. No known bleeding problems. PHYSICAL EXAMINATION: GENERAL: Shows a pleasant, middle-aged male, looks to be in pretty good health. HEENT: Benign. NECK: Supple, no lymphadenopathy. LUNGS: Clear to auscultation. HEART: Has a regular rate and rhythm. ABDOMEN: Soft, nontender, nondistended. EXTREMITIES: Grossly neurovascularly intact except as follows: Examination of the right leg and knee reveals the patient ambulates with the use of a cane. He has got valgus alignment to his knee which is made more obvious with weightbearing. He has got small knee effusion. Range of motion about 10-15 degrees short of full extension, about 110 degrees of flexion. No instability. No pain with hip motion. X-RAYS: X-rays of the right knee revealed advanced right knee DJD. He has got complete loss of his lateral joint space. He has got subchondral sclerosis and osteophytes off the lateral femoral condyle and lateral tibial plateau. The left knee replacement looks to be in good position. 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 He has failed conservative treatment and would like to have his right knee replaced. PLAN: We will take him to the operating room and do a right total knee replacement. The risks and benefits of this procedure were explained to the patient including but not limited to DVT, PE, , infection, neurological injury, vascular injury, bleeding problem, pain, limited range of motion, stiffness, persistent pain, etc. The patient understands and desires to proceed. Informed consent was obtained. I did tell him he is at increased risk for peroneal nerve palsy, particularly since his valgus deformity is pretty significant, he has got a flexion contracture. We will do all we can to avoid this. As far as discharge plans, he is planning to be discharged to home using [facility] home health program.
[~2019-03-04 08:16] MED LIST changes: +ACETAMINOPHEN 500 MG TAB PO SCH; -ASPI-461 PO; -ATOR-22 PO; +BUPIVACAINE 0.5 % 5 MG/1 ML PF 10ML VIAL ONE; +BUPIVACAINE LIPOSOME/PF 266 MG, BUPIVACAINE/EPINEPHRINE 50 ML, SODIUM CHLORIDE 0.9% 30 ... INFIL SCH; +BUPIVACAINE/EPINEPHRINE 0.25% 1:200,000 30 ML VIAL ONE; +CEFAZOLIN 2000MG 2,000 MG/15 ML SYR IV SCH; -CYM/30 PO; -DOCU100C PO; -DOXA4TAB2 PO; +FAMOTIDINE 20 MG TAB PO SCH; -GABA600T PO; +GABAPENTIN 300 MG CAP PO SCH; -GLUC250C PO; -LISI-863 PO; +LR 500ML BOLUS, THEN 15ML/HR IV SCH; +LR 60ML/HR IV SCH; -MELO-83 PO; -METH1TAB66 PO; +METOCLOPRAMIDE HCL 10 MG TABLET PO SCH; -MULTTAB58 PO; -OMEG10007 PO; -ROPI0.5T15 PO; -RXC5 PO; +TRANEXAMIC ACID 1,000 MG **IV Intra-op IV SCH
--- NOTE | 2019-03-04 08:53 | History & Physical Bridge Note ---
Date of Service March 04, 2019 History & Physical Bridge Note I have examined the patient, reviewed the History & Physical and in the interval since the performance of the History & Physical I have noted the following changes of clinical significance: no changes noted
[2019-03-04] MEDS ORDERED: MIDAZOLAM HCL 1 MG/ML 2ML VIAL ONE (09:20)
[2019-03-04] MEDS ORDERED: fentaNYL citrate 100 MCG/2 ML VIAL ONE (09:20)
[2019-03-04] MEDS ORDERED: ONDANSETRON INJ 2 MG/ML 2 ML VIAL IV PRN ×2 (10:00→14:32)
[2019-03-04] MEDS ORDERED: ePHEDrine sulfate 50 MG/ML AMP IV PRN (10:00)
[2019-03-04] MEDS ORDERED: ATROPINE SULFATE 0.1 MG/ML 10ML SYR IV PRN (10:00)
[2019-03-04] MEDS ORDERED: fentaNYL citrate 100 MCG/2 ML VIAL IV PRN (10:00)
[2019-03-04] MEDS ORDERED: HYDROmorphone INJ 2 MG/ML SYR/VIAL IV PRN (10:00)
[2019-03-04] MEDS ORDERED: BACITRACIN INJ 50,000 UNIT VIAL ONE (10:53)
[2019-03-04] MEDS ORDERED: BUPIVACAINE/EPINEPHRINE 0.25% 1:200,000 30 ML VIAL ONE (10:53)
[2019-03-04] MEDS ORDERED: SODIUM CHLORIDE 0.9% PF 50 ML VIAL ONE (10:53)
[2019-03-04] MEDS ORDERED: BUPIVACAINE LIPOSOME 1.3% 266 MG/20 ML VIAL ONE (10:53)
[2019-03-04] MEDS ORDERED: LIDOCAINE HCL 2% 2 ML VIAL/AMP(20MG/ML) INFIL ONE (11:14)
[2019-03-04] MEDS ORDERED: PROPOFOL IV EMULSION 10 MG/ML 20 ML VIAL IV ONE ×3 (11:14→11:42)
--- NOTE | 2019-03-04 13:00 | Post Operative Brief Note ---
PG Immediate Post Op with CF Date of Surgery March 04, 2019 Pre & Post Diagnosis Operation Date: 03/04/19 10:40 Pre-Op Diagnosis: Right Knee Advanced Degenerative Joint Disease Post-Op Diagnosis: Right Knee Advanced Degenerative Joint Disease I identified the patient and participated in the time-out.: Yes Procedure Operation Date: 03/04/19 10:40 Actual Procedures p Right Total Knee Arthroplasty(Right) - Kelvin Ivory MD Surgeon Kelvin Ivory MD Receiving Worker Konstantin, PAC Estimated Blood Loss 50 Findings Consistent with Post-Op Diagnosis Fluids 600 cc Specimens Specimen Description: A. Right Knee Bone and Tissue Drains Lane Catheter (A [address] catheter was inserted by CONNOR Garcia, without difficulty, clear yellow urine obtained, output to be monitored by Anesthesia.) Anesthesia Type Spinal MAC Complications none Disposition Accompanied Patient To Recovery: No Disposition: Recovery Room
--- NOTE | 2019-03-04 13:22 | XRay Report ---
XR knee RT 1 or 2V routine CLINICAL HISTORY: Surgical Post Op COMPARISON: Right knee radiographs January 30, 2019. FINDINGS: Alignment of the total right knee arthroplasty is anatomic. There is no periprosthetic fra cture or unexpected radiopaque foreign body. There are skin basia. IMPRESSION: Expected findings following total right knee arthroplasty. ACT 112: Negative or not required by law. Electronically signed by: Kash Beatty M.D. 03/04/2019 1:21 PM
--- NOTE | 2019-03-04 13:30 | Anesthesiology Progress Note ---
Date of Service March 04, 2019 Anesthesia Post Procedure Vital Signs Vital Signs: Temp Pulse Pulse Resp BP Pulse Ox 03/04/19 13:25 66 19 154/76 H 100 03/04/19 12:59 36.4 C L 78 12 164/76 H 100 03/04/19 08:46 71 18 185/89 H 94 Transfer of Care Handoff Completed per policy Notes Mental Status: alert / awake / arousable and participated in evaluation Patient Amnestic to Procedure: Yes Nausea / Vomiting: adequately controlled Pain: adequately controlled Airway Patency, RR, SpO2: stable & adequate BP & HR: stable & adequate Hydration State: stable & adequate Anesthetic Complications: no major complications apparent and Pt Satisfied with anesthetic care
[2019-03-04] MEDS ORDERED: TAMSULOSIN HCL 0.4 MG CAP PO PRN (14:32)
[2019-03-04] MEDS ORDERED: DULOXETINE HCL 30 MG CAP PO SCH (14:32)
[2019-03-04] MEDS ORDERED: METOCLOPRAMIDE HCL INJ 5 MG/ML 2 ML VIAL IV PRN (14:32)
[2019-03-04] MEDS ORDERED: PANTOprazole 40 MG TAB PO PRN (14:32)
[2019-03-04] MEDS ORDERED: bisacodyL 10 MG SUPP PR PRN (14:32)
[2019-03-04] MEDS ORDERED: NALOXONE HCL 0.4 MG/1 ML VIAL/CARP IV PRN (14:32)
[2019-03-04] MEDS ORDERED: PSYLLIUM HUSK 0.52 GM PO SCH (14:32)
[2019-03-04] MEDS ORDERED: HYDROmorphone INJ 0.5 MG/0.5 ML SYR IV PRN (14:32)
[2019-03-04] MEDS ORDERED: MAGNESIUM HYDROXIDE SUSP 30 ML UDC PO PRN (14:32)
[2019-03-04] MEDS: ACETAMINOPHEN 500 MG TAB PO SCH ×2 (15:43→21:33)
[2019-03-04] MEDS: OXYCODONE HCL IR 5 MG TAB (IMMEDIATE RELEASE) PO PRN ×2 (15:44→23:26)
[2019-03-04] MEDS: SODIUM CHLORIDE 0.9% 1000ML 1,000 ML IV SCH (15:46)
--- NOTE | 2019-03-04 16:57 | Operative Report ---
Post Operative Report Pre & Post Diagnosis Operation Date: 03/04/19 10:40 Pre-Op Diagnosis: Right Knee Advanced Degenerative Joint Disease Post-Op Diagnosis: Right Knee Advanced Degenerative Joint Disease I identified the patient and participated in the time-out.: Yes Procedure Operation Date: 03/04/19 10:40 Actual Procedures p Right Total Knee Arthroplasty(Right) - Kelvin Ivory MD Surgeon Kelvin Ivory MD [employer] Konstantin, PAC Estimated Blood Loss 50 Findings Consistent with Post-Op Diagnosis Operative findings revealed advanced right knee tricompartment DJD with severe grade 4 [id number] disease in all 3 compartments. He had large osteophytes in all 3 compartments. He had a flexion contracture about 20 degrees and could only flex about 100 degrees. He had extensive erosive changes throughout the whole knee. Fluids 600 cc Specimens Right knee sent for pathology. Drains None. 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 He is undergone both hip replacements as well as his left knee replacement. Over the past several years he developed increased pain discomfort and contracture in his right knee. Is been through extensive conservative treatment which became less successful over time. He elected proceed with right total knee arthroplasty. Description of Procedure Operative implants consist of: 1. Biomet Vanguard size 72.5 right posterior by femoral component. 2. Biomet Vanguard size 75 tibial tray. 3. 12 mm posterior stabilized polyethylene insert. 4. 31 x 8 all poly-patella. Patient taken to the operating room identified and placed on the operating table supine position protectors were properly padded. IV antibiotics were provided by anesthesia team. A spinal anesthetic and abductor canal block had been applied in the holding area. Mackenzie catheter was placed in sterile fashion. Right thigh tip was then placed in the right lower extremities and prepped and draped in the usual sterile fashion. The right leg was elevated and exsanguinated with use of an Esmarch interspace at 300 mmHg. An anterior approach the right knee was then performed to longitudinal incision centered over the patella. Sharp dissection was cut through subcutaneous tissue down below the extensor mechanism. A medial para patellar arthrotomy incision was made. Some subperiosteal dissection was carried out medially but the fat pad resected beneath patella tendon. The lateral patellofemoral ligament was released. Due to the very large size of the patella I elected to cut the patella first. The knee was brought into full extension. I clean the patella of soft tissues. He had a very large spur which was scarred down to the quadriceps which I had released superiorly. The patella thickness measured 25 mm in thickness was cut down to 14. Was sized to a size 31 patella. I then cut the lateral osteophyte out. I did not prepared the patella until the end of the case. The knee was then flexed. The osteophytes taken off the distal femur appears ACL was chronically absent. PCL was released in the distal femur and the tibia subluxated anteriorly. The external tibial alignment jig was then placed in the interface the tibia and adjusted 14 mm medially. Proximal tibial cut was made to move out 2 mm of bone from the most efficient aspect of the lateral side. Did take about 6 or 7 mm off the medial side. The tibia was then sized to a size 75. Attention drawn the femur. Nipride the disc femur was entered the sharp drill bit intramedullary canal was suction. A right 5 degree valgus cutting guide was placed but this femoral cutting block was pinned in place. Distal femoral cut was adjusted to take an additional 5 mm off the distal femur due to a significant flexion contracture. The distal femur cut was made. The femur was then sized to a 72.5. Did downsize this slightly. The AP cutting bl ock was pinned parallel to the epicondylar axis which was 5 degrees of external rotation. The anterior cut, anterior chamfer, posterior cut, posterior chamfer cuts were made. Box cutting guide was placed in just slight lateral box cut was made. The knee was flexed for the remnants of the medial lateral menisci were excised. The osteophytes were taken off the posterior aspect of the femur. I d id debride bring the femur out into extension and had to release some the IT band knee in order to equalize the extension gap. Great care was taken to protect the peroneal nerve at all times. I also had to release the popliteus in order to equalize the flexion gap. We then placed a trial femoral component. The tibial tray was pinned in maximum external rotation and the drill and stem punch were used to create defect in proximal tip for the tibial tray. I then trialed the knee and the 12 mm insert fit most appropriately. Attention drawn back to the patella. The patella is been previously cut. I then prepared it with locals for 31 patella. The trial patella was placed. Knee was taken through range of motion patella tracked nicely with no thumbs test. Attention turned to place the permanent components. All trial components removed. Bone plug was placed in the disc femur limit blood loss put a double batch Palacos G cement was mixed. Biomet Vanguard size 72.5 right posterior by femoral component, size 75 tibial tray, a 12 mm posterior box polyethylene insert, and a 31 x 8 all poly-patella were then cemented in place. He was brought out in full extension total cement hardened. Final cement check was then performed. The pericapsular tissues were injected with total 100 cc of combination of 20 cc of Exparel, 30 cc of normal saline, 50 cc of quarter percent Marcaine with epinephrine. Patient did receive 1 g tranexamic acid per the tourniquet was then let down for turn time 61 minutes. Hemostasis assured use electrocautery. The extensor mechanism then closed with combination 1 PDS suture #1 Vicryl suture in [id number] fashion for extensor mechanism checked found to be intact the subcutaneous tissue then closed with 2 Dexon suture buried interrupted fashion skin was closed skin basia. Leg was then cleaned and dried and sterile dressing composed of Xeroform, 4 x 4's, sterile cast padding, Anival bandage were applied. Patient then transferred to the recovery room in stable condition. Patient tolerated procedure well no complications. I attest to the content of the Intraoperative Record and any orders documented therein. Any exceptions are noted below.
[2019-03-04] MEDS: KETOROLAC TROMETHAMINE 15 MG/ML VIAL IV SCH ×2 (17:43→23:22)
[2019-03-04] MEDS: FERROUS GLUCONATE 324 MG TAB PO SCH (18:34)
[2019-03-04] MEDS: ASCORBIC ACID 500 MG TAB PO SCH (18:34)
[2019-03-04] MEDS ORDERED: TRANEXAMIC ACID / 0.7% NACL 1,000 MG/100 ML BAG IV SCH (20:00)
[2019-03-04] MEDS ORDERED: DOCUSATE SODIUM 100 MG CAP PO SCH (21:00)
[2019-03-04] MEDS: TAPENTADOL HCL ER 50 MG TABCR PO SCH (21:30)
[2019-03-04] MEDS: SENNA 8.6 MG TAB PO SCH (21:30)
[2019-03-04] MEDS: CEFAZOLIN 2000MG 2,000 MG/15 ML SYR IV SCH (21:30)
[2019-03-04] MEDS: ASPIRIN 81 MG ECTAB PO SCH (21:31)
[2019-03-04] MEDS: DOCUSATE SODIUM 100 MG CAP PO SCH (21:31)
[2019-03-04] MEDS: ATORVASTATIN 20 MG TAB PO SCH (21:32)
[2019-03-04] MEDS: ROPINIROLE HCL 1 MG TABLET PO SCH (21:32)
[2019-03-05] MEDS: SODIUM CHLORIDE 0.9% 1000ML 1,000 ML IV SCH (02:04)
[2019-03-05] MEDS: ACETAMINOPHEN 500 MG TAB PO SCH ×3 (05:07→22:15)
[2019-03-05] MEDS: CEFAZOLIN 2000MG 2,000 MG/15 ML SYR IV SCH (05:07)
[2019-03-05] MEDS: KETOROLAC TROMETHAMINE 15 MG/ML VIAL IV SCH ×4 (05:07→23:47)
[2019-03-05 07:00] LABS: Hematocrit (blood only) 33.2 % (42-52); Hemoglobin 11.5 g/dL (14.0-18.0); Mean Corpuscular Hemoglobin 33.3 pg (25-34); Mean Corpuscular Hgb Conc 34.6 g/dL (32-36); Mean Corpuscular Volume 96.2 fL (80-100); Mean Platelet Volume 9.3 fL (7.4-10.4); Platelet Count 210 K/uL (130-400); RDW Coefficient of Variation 12.6 % (11.5-14.5); RDW Standard Deviation 43.9 fL (36.4-46.3); Red Blood Count 3.45 M/uL (4.7-6.1); White Blood Count 11.47 K/uL (4.8-10.8)
[2019-03-05 07:28] LABS: BUN Creatinine Ratio 21.8 (10-20); Calcium 8.8 mg/dl (8.5-10.1); Creatinine Clr Calc Pharmacy 82.8 ml/min; Est GFR (African American) 84.1; Est GFR (Non-African American) 72.6
[2019-03-05] MEDS ORDERED: dexAMETHasone 4 MG TAB PO SCH (08:00)
--- NOTE | 2019-03-05 08:39 | Anesthesiology Progress Note ---
Date of Service March 05, 2019 Anesthesia Post Procedure Vital Signs Vital Signs: Temp Pulse Pulse Resp BP Pulse Ox 03/05/19 07:46 36.6 C 59 L 18 152/76 H 95 03/05/19 03:31 36.6 C 61 16 145/80 H 95 03/04/19 22:54 36.5 C 63 16 149/69 H 97 03/04/19 20:32 36.7 C 62 16 158/77 H 94 03/04/19 17:24 36.5 C 66 17 179/71 H 95 03/04/19 16:27 36.7 C 67 17 170/75 H 96 03/04/19 14:52 60 16 170/92 H 96 03/04/19 14:38 36.9 C 62 17 154/77 H 98 03/04/19 14:05 36.6 C 70 20 138/74 100 03/04/19 13:55 36.6 C 61 15 164/74 H 99 03/04/19 13:45 36.6 C 61 12 139/71 99 03/04/19 13:35 66 19 154/76 H 100 03/04/19 13:25 66 19 154/76 H 100 03/04/19 13:20 69 22 140/75 100 03/04/19 13:10 70 13 149/75 H 100 03/04/19 12:59 36.4 C L 78 12 164/76 H 100 03/04/19 08:46 71 18 185/89 H 94 Pain Intensity Right Knee: Pain Intensity: 4 Notes Mental Status: alert / awake / arousable and participated in evaluation Patient Amnestic to Procedure: Yes Nausea / Vomiting: adequately controlled Pain: adequately controlled Airway Patency, RR, SpO2: stable & adequate BP & HR: stable & adequate Hydration State: stable & adequate Neuraxial Anesthesia: was administered and sensory block resolved Anesthetic Complications: no major complications apparent and Pt Satisfied with anesthetic care
[2019-03-05] MEDS: ASCORBIC ACID 500 MG TAB PO SCH ×2 (09:00→17:14)
[2019-03-05] MEDS: FERROUS GLUCONATE 324 MG TAB PO SCH ×2 (09:00→17:13)
[2019-03-05] MEDS ORDERED: GABAPENTIN 300 MG CAP PO SCH (09:00)
[2019-03-05] MEDS: LOSARTAN POTASSIUM 50 MG TAB PO SCH (09:14)
[2019-03-05] MEDS: TAPENTADOL HCL ER 50 MG TABCR PO SCH ×2 (09:14→21:02)
[2019-03-05] MEDS: MULTIVITAMIN TAB PO SCH (09:15)
[2019-03-05] MEDS: ASPIRIN 81 MG ECTAB PO SCH ×2 (09:16→20:59)
[2019-03-05] MEDS: OXYCODONE HCL IR 5 MG TAB (IMMEDIATE RELEASE) PO PRN (09:51)
--- NOTE | 2019-03-05 11:10 | Progress Note ---
DATE: 03/05/2019 SUBJECTIVE: A 68-year-old gentleman postop day 1 from right knee replacement. He is doing okay. Having a little bit more pain than what he remembers from his left knee. He did respond pretty well with pain medicines. No chest pain or shortness of breath. Not feeling dizzy or lightheaded. OBJECTIVE: VITAL SIGNS: Temperature 36.6. Vital signs stable. GENERAL: Shows a pleasant elderly male. He is lying in bed and I had to wake him when I went in to visit with him this morning. EXTREMITIES: Examination of the right leg reveals it to be well aligned. His dressing is clean, dry, and intact. He can dorsiflex and plantarflex his foot appropriately. He is neurologically intact. LABORATORY DATA: Hemoglobin 11.5. Hematocrit 33.2. White cell count is slightly elevated. His electrolytes are stable. ASSESSMENT: A 68-year-old gentleman postoperative day 1 from a right knee replacement, doing reasonably well. Having a little bit more pain than he had what he recalls from his other knee, but nothing out of the ordinary. He seems to be doing well with pain medicines. PLAN: 1. DVT prophylaxis including thigh-high TEDs, SCDs, and aspirin twice a day. 2. PT/OT. Weight bear as tolerated. Right total knee protocol. 3. Pain control, doing okay with current pain regimen. 4. Disposition: He is planning to be discharged to home with some home health once adequately recovered and medically stable.
[2019-03-05] MEDS: ALUMINUM/MAGNESIUM SUSP 30 ML UDC PO PRN ×2 (11:53→23:48)
[2019-03-05] MEDS: ATORVASTATIN 20 MG TAB PO SCH (20:59)
[2019-03-05] MEDS: DOCUSATE SODIUM 100 MG CAP PO SCH (20:59)
[2019-03-05] MEDS: ROPINIROLE HCL 1 MG TABLET PO SCH (20:59)
[2019-03-05] MEDS: SENNA 8.6 MG TAB PO SCH (20:59)
[2019-03-06] MEDS: OXYCODONE HCL IR 5 MG TAB (IMMEDIATE RELEASE) PO PRN ×2 (00:44→08:07)
[2019-03-06] MEDS: ACETAMINOPHEN 500 MG TAB PO SCH (05:43)
[2019-03-06] MEDS: KETOROLAC TROMETHAMINE 15 MG/ML VIAL IV SCH (05:43)
[2019-03-06] MEDS: ASCORBIC ACID 500 MG TAB PO SCH (08:08)
[2019-03-06] MEDS: MULTIVITAMIN TAB PO SCH (08:08)
[2019-03-06] MEDS: ASPIRIN 81 MG ECTAB PO SCH (08:08)
[2019-03-06] MEDS: LOSARTAN POTASSIUM 50 MG TAB PO SCH (08:08)
[2019-03-06] MEDS: TAPENTADOL HCL ER 50 MG TABCR PO SCH (08:08)
[2019-03-06] MEDS: FERROUS GLUCONATE 324 MG TAB PO SCH (08:08)
--- NOTE | 2019-03-06 09:45 | Progress Note ---
DATE: 03/06/2019 SUBJECTIVE: A 68-year-old gentleman postop day 2 from a right knee replacement. He is doing better this morning. Pain is improved. Therapy went pretty well. No chest pain or shortness of breath. Not feeling dizzy or lightheaded. OBJECTIVE: VITAL SIGNS: Temperature 36.9. Vital signs stable. GENERAL: Pleasant elderly male. He is sitting up in his bedside chair, looks pretty comfortable. EXTREMITIES: Examination of the right leg reveals the dressing to be in place. He does have a very large fracture blister with some blood in it laterally. It is closed. Wounds otherwise well approximated. Calf is soft and supple. He is neurologically intact. ASSESSMENT: A 68-year-old gentleman postop day 2 from right knee replacement, doing pretty well. He has got some moderate swelling and some fracture blisters which is not out of any ordinary. PLAN: 1. DVT prophylaxis including thigh-high TEDs, SCDs, and aspirin twice a day. 2. PT/OT. Weight bear as tolerated. Right total knee protocol. 3. Pain control, doing okay with current pain regimen. 4. Wound care. He has got pretty significant fracture blisters. We will just continue to manage these with dressing changes. We are going to keep them closed if possible. 5. Disposition: Plan to discharge to home later today if does okay in therapy.
--- NOTE | 2019-03-07 18:20 | Discharge Summary ---
ADMITTING PHYSICIAN AND SURGEON: Dr. Kelvin Ivory. ADMITTING DIAGNOSIS: Right knee degenerative joint disease. SURGERY PERFORMED: Right total knee arthroplasty. SECONDARY DIAGNOSES: Elevated cholesterol, hypertension, lumbar spondylosis, back pain, sciatica, cervical spine arthritis, gastroesophageal reflux disease, BPH. CONSULTS: None obtained. HISTORY AND PHYSICAL EXAMINATION: Well documented in the patient's chart. HOSPITAL COURSE: The patient was admitted on 03/04/2019 underwent total knee arthroplasty, tolerated the procedure well. There were no complications. He was transferred to the PACU postoperatively and later to the orthopedic floor for further care. He was given Ancef for antibiotic prophylaxis, JOSE E stockings, SCDs and aspirin for DVT prophylaxis. Hemoglobin, hematocrit and vital signs were monitored during his hospital stay and remained stable, did not require any blood transfusions. There were no complications. By postoperative day 2, he was tolerating a regular diet, pain was controlled with oral pain medicine. He was participating in physical therapy. Postop day 2, he was discharged home, set up with home health services, given printed discharge instructions as well as new prescriptions for extra strength Tylenol, aspirin and oxycodone. Continue his home medications, continue physical therapy, weightbearing as tolerated, JOSE E stockings. Follow up approximately 2 weeks postop or sooner if there are any problems or concerns.
[2019-04-10] MEDS ORDERED: GABAPENTIN 300 MG CAP PO SCH (06:00)
[2019-04-10] MEDS ORDERED: METOCLOPRAMIDE HCL 10 MG TABLET PO SCH (06:00)
[2019-04-10] MEDS ORDERED: LR 15ML/HR IV SCH (06:00)
[2019-04-10] MEDS ORDERED: CEFAZOLIN 2000MG 2,000 MG/15 ML SYR IV SCH (06:00)
[2019-04-10] MEDS ORDERED: BUPIVACAINE LIPOSOME/PF 266 MG, BUPIVACAINE/EPINEPHRINE 50 ML, SODIUM CHLORIDE 0.9% 30 ... INFIL SCH (06:00)
[2019-04-10] MEDS ORDERED: ACETAMINOPHEN 500 MG TAB PO SCH (06:00)
[2019-04-10] MEDS ORDERED: FAMOTIDINE 20 MG TAB PO SCH (06:00)
[2019-04-10] MEDS ORDERED: LR 500ML BOLUS, THEN 15ML/HR IV SCH (06:00)
[2019-04-10] MEDS ORDERED: LR 60ML/HR IV SCH (06:00)
[2019-04-10] MEDS ORDERED: TRANEXAMIC ACID 1,000 MG **IV Intra-op IV SCH (06:30)
== END 2019-03-06 12:19 | disposition home or self-care (01) | DRG 470 ==
LOC: ASU 08:16 → 3E 13:07

== ENCOUNTER 2024-03-19 18:56 | Observation (INO) ==
[2024-03-19 19:09] VITALS: TEMP 98.4
[2024-03-19] MEDS: dilTIAZem HCl 5 MG/ML 5 ML VIAL IV STA (19:53)
[2024-03-19 19:58] LABS: Basophils # (auto) 0.06 K/uL (0.00-0.20); Basophils % (auto) 0.7 %; Eosinophils # (auto) 0.22 K/uL (0.00-0.50); Eosinophils % (auto) 2.4 %; Hematocrit (blood only) 39.4 % (42.0-52.0); Immature Granulocytes # (auto) 0.03 K/uL (0.01-0.20); Immature Granulocytes % (auto) 0.3 %; Lymphocytes # (auto) 1.54 K/uL (1.20-3.40); Lymphocytes % (auto) 17.1 %; Mean Corpuscular Hemoglobin 32.3 pg (25.0-34.0); Mean Corpuscular Hgb Conc 35.5 g/dL (32.0-36.0); Mean Platelet Volume 9.5 fL (9.4-12.4); Monocytes # (auto) 0.76 K/uL (0.11-0.59); Monocytes % (auto) 8.5 %; Neutrophils # (auto) 6.38 K/uL (1.40-6.50); Platelet Count 252 K/uL (130-400); RDW Coefficient of Variation 12.1 % (11.5-14.5); RDW Standard Deviation 40.4 fL (36.4-46.3); Red Blood Count 4.33 M/uL (4.70-6.10); White Blood Count 8.99 K/ul (4.8-10.8)
[2024-03-19] MEDS: SODIUM CHLORIDE 0.9% 1,000 ML IV ONE (20:03)
[2024-03-19 20:08] LABS: Adenovirus PCR Not Detected (NotDetected); Bordetella parapertussis PCR Not Detected (NotDetected); Bordetella pertussis PCR Not Detected (NotDetected); Chlamydia pneumoniae PCR Not Detected (NotDetected); Coronavirus 229E PCR Not Detected (NotDetected); Coronavirus CoV-2 (COVID19)PCR Not Detected (NotDetected); Coronavirus HKU1 PCR Not Detected (NotDetected); Coronavirus NL63 PCR Not Detected (NotDetected); Coronavirus OC43PCR Not Detected (NotDetected); Human Metapneumovirus PCR Not Detected (NotDetected); Influenza A (H1 2009) PCR DETECTED (NotDetected); Influenza B PCR Not Detected (NotDetected); Mycoplasma pneumoniae PCR Not Detected (NotDetected); Parainfluenza Virus 1 PCR Not Detected (NotDetected); Parainfluenza Virus 2 PCR Not Detected (NotDetected); Parainfluenza Virus 3 PCR Not Detected (NotDetected); Parainfluenza Virus 4 PCR Not Detected (NotDetected); Respiratory Syncytial VirusPCR Not Detected (NotDetected); Rhinovirus/Enterovirus PCR Not Detected (NotDetected)
[2024-03-19 20:16] LABS: Albumin Globulin Ratio 1.6 (0.9-2); Albumin Level 4.8 gm/dl (3.4-5.0); BUN Creatinine Ratio 19.8 (10-20); Bilirubin,Total 0.3 mg/dl (0.2-1.0); Calcium 11.2 mg/dl (8.6-10.3); Creatinine Clr Calc Pharmacy 87.9 ml/min; Magnesium 1.6 mg/dl (1.7-2.4); Potassium 3.9 mmol/L (3.5-5.1); Total Protein 7.8 gm/dl (6.0-8.3)
[2024-03-19 20:22] LABS: Troponin I High Sensitivity 5.7 pg/ml (0-20)
[2024-03-19 20:25] LABS: INR 0.9 (0.9-1.1); Partial Thromboplastin Time 27 Seconds (21-31)
[2024-03-19 20:25] LABS: iSTAT Creatinine 0.9 mg/dl (0.6-1.3); iSTAT Hemoglobin 13.6 g/dl (14.0-18.0); iSTAT Ionized Calcium 1.34 mmol/l (1.12-1.32); iSTAT Potassium 3.7 mmol/L (3.3-5.0)
--- NOTE | 2024-03-19 20:30 | XRay Report ---
Exam(s): XR CXR 1 VIEW EXAM: XR Chest, 1 View CLINICAL HISTORY: Reason for exam: Chest pain, nonspecific. TECHNIQUE: Frontal view of the chest. COMPARISON: 01/18/2022 FINDINGS: Lungs: No consolidation. No overt edema. Pleural space: No pleural effusion. No pneumothorax. Heart: Unremarkable. No cardiomegaly. Bones/joints: Left shoulder arthroplasty. Degenerative changes in the right shoulder. IMPRESSION: No acute findings in the chest. Electronically signed by: Julio Silverman MD 03/19/24 20:29 PM
[2024-03-19] MEDS: OPTIRAY 320 125ml IV ONE (20:36)
[2024-03-19] MEDS: dilTIAZem HCL 125 MG in DEXTROSE 5% 100 ML IV SCH (20:42)
[2024-03-19] MEDS: STAT IV Infusion **Titration per Protocol STA (20:43)
--- NOTE | 2024-03-19 20:51 | CT Scan Report ---
Exam(s): CTA CHEST IV Amt: 82 mls optiray 320 EXAM: CT Angiography Chest With Intravenous Contrast CLINICAL HISTORY: Reason for exam: ro PE. TECHNIQUE: Axial computed tomographic angiography images of the chest with intravenous contrast. CTDI is 28.14 mGy and DLP is 873.63 mGy-cm. Automated exposure control was utilized for the study. A dose lowering technique was utilized adhering to the principles of ALARA. MIP reconstructed images were created and reviewed. COMPARISON: 03/14/2022 FINDINGS: Pulmonary arteries: No pulmonary embolism. Aorta: No acute findings. Normal caliber. No dissection. Lungs: Scattered atelectasis in the lungs. No consolidation or interstitial edema. Pleural space: No pleural effusion. No pneumothorax. Heart: Unremarkable. Bones/joints: No acute fracture. Soft tissues: Unremarkable. Lymph nodes: Unremarkable. IMPRESSION: No pulmonary embolism. Electronically signed by: Julio Silverman MD 03/19/24 20:50 PM
[2024-03-19] MEDS: OSELTAMIVIR PHOSPHATE 75 MG CAP PO STA (21:05)
--- NOTE | 2024-03-19 21:26 | Emergency Department Note ---
History of Present Illness General Chief Complaint: Flu Like Symptoms Stated Complaint: FLU LIKE SX Time Seen by Provider: 03/19/24 19:46 History of Present Illness Provider Complaint: + fever, + cough and + nasal congestion Onset (ago): 2 day(s) Duration: + progressively worsening Able to tolerate fluids by mouth: Yes Context: + sick contacts (Patient states his had to recently be admitted for influenza) Associated symptoms: + fever, + myalgias and + shortness of breath; no chest pain, no abdominal pain, no nausea, no vomiting or no diarrhea Home Medications Medication Instructions Recorded Confirmed Type docusate sodium 100 mg capsule 400 mg PO QPM 11/18/18 03/06/24 History (Stool Softener) cartilage 40 mg-collagen II-boron 1 tab PO QAM 01/16/19 03/06/24 History 5 mg-hyaluronate sod 3.3 mg tablet (Move Free Ultra Triple Action (boron)) omega 3 350 mg-dha 235 mg-epa 90 1 cap PO TIDM 01/21/20 03/06/24 History mg-fish oil 597 mg capsule,delay rel ([place]-3) acetaminophen 500 mg capsule 1,000 mg PO HS PRN Pain 03/24/21 03/06/24 History multivitamin with minerals-folic 1 tab PO QAM 01/04/22 03/06/24 History acid 0.4 mg tablet ([employer] Program Schedule Clerk) psyllium husk 0.52 gram capsule 0.52 g PO TID 01/04/22 03/06/24 History (Fiber (psyllium husk)) fluticasone propionate 50 2 spray intranasal BID 05/10/22 03/06/24 History mcg/actuation nasal spray,suspension clindamycin HCl 300 mg capsule 600 mg (2 x 300 mg) PO ONCE #4 caps 07/25/23 03/06/24 Rx sildenafil 100 mg tablet 100 mg PO DAILY PRN sexual 08/03/23 03/06/24 Rx activity #20 tabs tadalafil 5 mg tablet 5 mg PO DAILY #90 tabs 08/13/23 03/06/24 Rx pregabalin 100 mg capsule 100 mg PO QID #360 caps 09/14/23 03/06/24 Rx pantoprazole 40 mg tablet,delayed 40 mg PO QAM #90 tabs 11/08/23 03/06/24 Rx release amlodipine 10 mg tablet 10 mg PO QAM 11/21/23 03/06/24 History atorvastatin 20 mg tablet 20 mg PO QPM #90 tabs 11/21/23 03/06/24 Rx celecoxib 100 mg capsule (Celebrex) 100 mg PO TID 11/21/23 03/06/24 History losartan 100 mg tablet 100 mg PO QAM 11/21/23 03/06/24 History spironolactone 25 mg tablet 25 mg PO QAM 11/21/23 03/06/24 History cyclobenzaprine 5 mg tablet 5 mg PO TID PRN muscle spasm #60 12/03/23 03/06/24 Rx tabs metformin 500 mg tablet 1,000 mg (2 x 500 mg) PO BID #360 12/24/23 03/06/24 Rx tabs clotrimazole-betamethasone 1 1 applic topical BID PRN 03/06/24 03/06/24 History %-0.05 % topical cream ropinirole 2 mg tablet 2 mg PO UD 03/06/24 History Allergies Allergy/AdvReac Type Severity Reaction Status Date / Time Penicillins Allergy Intermediate Hives Verified 03/06/24 13:31 gabapentin AdvReac Intermediate visual Verified 03/06/24 13:31 hallucination hydrocodone AdvReac Intermediate hallucinati Verified 03/06/24 13:31 ons Past Med/Surg History Problem List (Updated 03/19/24 @ 21:29 by Monico Villela MD) Atrial fibrillation with RVR (Acute) Influenza (Acute) Atrial fibrillation, new onset (Acute) Hyperlipidemia Ankylosing spondylitis 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 Stable. PTH, PTHrP, Vit D 1,25 OH, Vit D 25OH, SPEP unremarkable. CT chest - no evidence of granulomatous disease. Monitoring at routine office visits. Nasal septal deviation Hearing deficit B/L GOEL Spinal stenosis Osteoarthritis HTN (hypertension) Cyst of kidney, acquired left side, stable. Hunner's ulcer Cervical stenosis of spinal canal Surgical History History of carpal tunnel surgery of left wrist Status post epidural steroid injection Status post surgical removal of malignant neoplasm of skin SHOULDER AREA>MELANOMA Status post cataract extraction of both eyes with insertion of intraocular lens S/P cubital tunnel release BL History of fusion of cervical spine 11/2017 [facility]. glidescope #3. 1 attempt. GETA. ROM WNL. Difficult intubation 03/16/17= LEFT TSA= GRADE VIEW 1 WITH GLIDESCOPE#4 ETT 8.0 AT [facility] Hx of vasectomy History of bladder surgery bladder ulcer repair History of total shoulder replacement left History of total knee replacement left/right History of total hip arthroplasty B/L History of colonoscopy 05/2022, Repeat 10 yrs, No further screening Hx of wisdom tooth extraction Hx of eye surgery SCLERAL BUCKLE Family History Mother Lung cancer Father Diabetes Heart disease Myocardial infarction Other No family history of adverse response to anesthesia Denies family history of Ovarian cancer Prostate cancer Breast cancer Colorectal cancer Stroke Social History Smoking Status: Former smoker Tobacco Type: Cigarettes Age Started Using Tobacco: 22; Age Quit Using Tobacco: 24; packs per day: 1.5; Second Hand Exposure: No; Do You Dip or Chew Tobacco: No; Hx Alcohol Use: Yes Alcohol type: beer and wine Alcohol Intake Frequency: Monthly or Less Hx Substance Use: No Preferred Language: Azeri Communication Ability: Effective Visual Impairment: Diminished Hearing Ability: Use of Hearing Aid Hunting And Fishing Guide Required: No marital status: Current Living Situation: Spouse current occupational status: retired How many Children do You have: 2 Feels Safe at Home: Yes Childhood Exposure to Second-Hand Smoke: Yes Diet: low carbohydrate and low salt caffeine: Yes Dental Care, Regularly: Yes Physical Activity Frequency: 1-2 Times per Week Physical Activity Frequency Comment: walk Seatbelt Use: always Sunscreen Use: Yes Assistive Devices: Glasses and Hearing Aid - Bilateral Physical Exam 2 Vital Signs: Vital Signs - 24 hr 03/19/24 19:05 03/19/24 19:46 03/19/24 19:46 Temperature 36.9 C Temperature Source Temporal Artery Sc an Pulse Rate 108 H Pulse Rate [Apical ] Pulse Rhythm [Apic al] Pulse Strength [Ap ical] Respiratory Rate 18 Respiratory Effort / Characteristics Respiratory Depth Respiratory Patter n Blood Pressure 165/100 H Blood Pressure [Ri ght Arm] Blood Pressure Cathleen n 121 Blood Pressure Cathleen n [Right Arm] Pulse Oximetry 95 Oxygen Delivery Me thod Room Air Room Air Room Air Sepsis Recent Feve r Within 48 Hours No Sepsis New/Unexpla ined Change in Men christina Status No Sepsis Action Take n by Nursing No Action Required 03/19/24 19:50 03/19/24 20:55 Temperature Temperature Source Pulse Rate 123 H Pulse Rate [Apical ] 89 Pulse Rhythm [Apic al] Irregular Pulse Strength [Ap ical] Normal Respiratory Rate 21 Respiratory Effort / Characteristics Non-Labored Sponta neous Respiratory Depth Normal Respiratory Patter n Regular Blood Pressure Blood Pressure [Ri ght Arm] 157/71 H Blood Pressure Cathleen n Blood Pressure Cathleen n [Right Arm] 99 Pulse Oximetry 94 Oxygen Delivery Me thod Room Air Sepsis Recent Feve r Within 48 Hours Sepsis New/Unexpla ined Change in Men christina Status Sepsis Action Take n by Nursing Physical Exam: Physical Exam GENERAL: oriented to person, place, and time. appears well-developed and well- nourished. HENT: Exam performed. - Head: Normocephalic and atraumatic. EYES: Conjunctivae and EOM are normal. Right eye exhibits no discharge. Left eye exhibits no discharge. No scleral icterus. NECK: Normal range of motion. Neck supple. No JVD present. CV: Tachycardic rate, irregular rhythm, normal heart sounds and intact distal pulses. There is no peripheral edema. Palpable radial pulses bue. PULM/CHEST: Effort normal and breath sounds normal. No respiratory distress. No stridor. no wheezes. no rales. ABD: The abdomen is soft. There is no tenderness. NEURO: Motor and sensation grossly intact. SKIN: Skin is warm and dry. He is not diaphoretic. PSYCH: normal mood and affect. Behavior is normal. Judgment and thought content normal. Course Course 194: The patient was evaluated in room D6. A complete history and physical exam was performed Cardiac monitoring: An order was placed for continuous cardiac monitoring. The monitor shows a rate of 110-140 with atrial fibrilation rhythm interpreted by me Large-bore IV access was obtained and Cardizem 20 mg IV push was given to the patient which improved the patient's ventricular rate. 2121: Vital signs stable. Labs and imaging are unremarkable with exception of the patient being positive for influenza. Tamiflu given to the patient. Patient remains in atrial fibrillation on Cardizem drip. Patient be started on heparin drip given his [id number] or and be admitted to the [facility] team. IKE?DS?-VASc Score for Atrial Fibrillation Stroke Risk from [email or web address] on 03/19/2024 All calculations should be rechecked by clinician prior to use RESULT SUMMARY: 3 points Stroke risk was 3.2% per year in >90,000 patients (the [place] Atrial Fibrillation Cohort Study) and 4.6% risk of stroke/TIA/systemic embolism. INPUTS: Age > 1 = 65-74 Sex > 0 = Male CHF history > 0 = No Hypertension history > 1 = Yes Stroke/TIA/thromboembolism history > 0 = No Vascular disease history (prior DE, peripheral artery disease, or aortic plaque) > 0 = No Diabetes history > 1 = Yes Administered Medications Diltiazem HCl 125 mg/ Dextrose 125 mls @ 5 mls/hr IV .Q24H [facility]; Protocol Stop: 04/18/24 19:59 Last Admin: 03/19/24 20:42 Dose: 5 mg/hr, 5 mls/hr Documented By: DASHA Co-signed By: Discontinued Medications Diltiazem HCl (Diltiazem Hcl 5 Mg/Ml 5 Ml Vial) 20 mg IV NOW STA Stop: 03/19/24 19:52 Last Admin: 03/19/24 19:53 Dose: 20 mg Documented By: DASHA Co-signed By: JEROME Sodium Chloride (Nss) 1,000 mls @ 999 mls/hr IV .Q1H1M ONE Stop: 03/19/24 20:51 Last Admin: 03/19/24 20:03 Dose: 999 mls/hr Documented By: DASHA Ioversol (Optiray 320 125ml) 82 ml IV ONCE ONE Stop: 03/19/24 20:36 Last Admin: 03/19/24 20:36 Dose: 82 ml Documented By: ELIS Miscellaneous (Stat Iv Infusion Titration Per Protocol) 1 each N/A NOW STA Stop: 03/19/24 19:58 Last Admin: 03/19/24 20:43 Dose: Not Given Documented By: DASHA Oseltamivir Phosphate (Oseltamivir Phosphate 75 Mg Cap) 75 mg PO NOW STA; Protocol Stop: 03/19/24 20:24 Last Admin: 03/19/24 21:05 Dose: 75 mg Documented By: MARY Medical Decision Making Laboratory Data Attestation: I reviewed the patient's lab results. 03/19/24 19:45 03/19/24 19:45 Lab Results 03/19/24 03/19/24 03/19/24 Range/Units 19:09 19:45 20:12 WBC 8.99 (4.8-10.8) K/ul RBC 4.33 L (4.70-6.10) M/uL Hgb 14.0 (14.0-18.0) g/dl POC Hgb 13.6 L (14.0-18.0) g/dl Hct 39.4 L (42.0-52.0) % POC Hct 40 L (42-52) % MCV 91.0 (80.0-100.0) fL MCH 32.3 (25.0-34.0) pg MCHC 35.5 (32.0-36.0) g/dL RDW Std Deviation 40.4 (36.4-46.3) fL RDW Coeff of Anay 12.1 (11.5-14.5) % Plt Count 252 (130-400) K/uL MPV 9.5 (9.4-12.4) fL Immature Gran % (Auto) 0.3 % Neut % (Auto) 71.0 % Lymph % (Auto) 17.1 % Mcdowell % (Auto) 8.5 % Eos % (Auto) 2.4 % Baso % (Auto) 0.7 % Neut # (Auto) 6.38 (1.40-6.50) K/uL Lymph # (Auto) 1.54 (1.20-3.40) K/uL Mcdowell # (Auto) 0.76 H (0.11-0.59) K/uL Eos # (Auto) 0.22 (0.00-0.50) K/uL Baso # (Auto) 0.06 (0.00-0.20) K/uL Immature Gran # (Auto) 0.03 (0.01-0.20) K/uL PT 10.0 (9.0-12.0) Seconds INR 0.9 (0.9-1.1) APTT 27 (21-31) Seconds PTT Ratio 1.0 POC Sodium 137 (135-144) mmol/L Sodium 135 L (136-145) mmol/L POC Potassium 3.7 (3.3-5.0) mmol/L Potassium 3.9 (3.5-5.1) mmol/L POC Chloride 104 (101-112) mmol/L Chloride 102 (98-107) mmol/L Carbon Dioxide 24 (21-32) mmol/L POC Total CO2 21 L (24-31) mmol/L Anion Gap 9 (3-11) POC Anion Gap 17.0 (16-25) mmol/L POC BUN 17 (7-18) mg/dl BUN 18 (6-23) mg/dl Creatinine 0.91 (0.6-1.4) mg/dl POC Creatinine 0.9 (0.6-1.3) mg/dl Est Cr Clr Drug Dosing 87.9 ml/min eGFR 88.99 BUN/Creatinine Ratio 19.8 (10-20) Glucose 101 H (70-99(Fasting)) mg/dl POC Glucose (other) 102 H (70-99) mg/dl Lactate (0.4-2.0) mmol/L Calcium 11.2 H (8.6-10.3) mg/dl POC Ioniz Calcium Philippe 1.34 H (1.12-1.32) mmol/l Magnesium 1.6 L (1.7-2.4) mg/dl Total Bilirubin 0.3 (0.2-1.0) mg/dl AST 25 (13-39) U/L ALT 26 (7-52) U/L Alkaline Phosphatase 73 (34-104) U/L Troponin I High Sens 5.7 (0-20) pg/ml Total Protein 7.8 (6.0-8.3) gm/dl Albumin 4.8 (3.4-5.0) gm/dl Globulin 3.0 (2.5-4.0) gm/dl Albumin/Globulin Ratio 1.6 (0.9-2) Nasal Influ A H1 2008 PCR DETECTED A (NotDetected) Adenovirus (PCR) Not Detected (NotDetected) B. pertussis DNA (PCR) Not Detected (NotDetected) B.parapertussis DNA PCR Not Detected (NotDetected) C. pneumoniae DNA (PCR) Not Detected (NotDetected) Coronavirus OC43 (PCR) Not Detected (NotDetected) Coronavirus HKU1 (PCR) Not Detected (NotDetected) Coronavirus 229E (PCR) Not Detected (NotDetected) SARS-CoV-2 (PCR) Not Detected (NotDetected) Coronavirus NL63 (PCR) Not Detected (NotDetected) Human Metapneumovir PCR Not Detected (NotDetected) Influenza Type B (PCR) Not Detected (NotDetected) M. pneumoniae (PCR) Not Detected (NotDetected) Parainfluenza 1 (PCR) Not Detected (NotDetected) Parainfluenza 2 (PCR) Not Detected (NotDetected) Parainfluenza 3 (PCR) Not Detected (NotDetected) Parainfluenza 4 (PCR) Not Detected (NotDetected) RSV (PCR) Not Detected (NotDetected) Entero/Rhino (PCR) Not Detected (NotDetected) 03/19/24 Range/Units Unknown WBC (4.8-10.8) K/ul RBC (4.70-6.10) M/uL Hgb (14.0-18.0) g/dl POC Hgb (14.0-18.0) g/dl Hct (42.0-52.0) % POC Hct (42-52) % MCV (80.0-100.0) fL MCH (25.0-34.0) pg MCHC (32.0-36.0) g/dL RDW Std Deviation (36.4-46.3) fL RDW Coeff of Anay (11.5-14.5) % Plt Count (130-400) K/uL MPV (9.4-12.4) fL Immature Gran % (Auto) % Neut % (Auto) % Lymph % (Auto) % Mcdowell % (Auto) % Eos % (Auto) % Baso % (Auto) % Neut # (Auto) (1.40-6.50) K/uL Lymph # (Auto) (1.20-3.40) K/uL Mcdowell # (Auto) (0.11-0.59) K/uL Eos # (Auto) (0.00-0.50) K/uL Baso # (Auto) (0.00-0.20) K/uL Immature Gran # (Auto) (0.01-0.20) K/uL PT (9.0-12.0) Seconds INR (0.9-1.1) APTT (21-31) Seconds PTT Ratio POC Sodium (135-144) mmol/L Sodium (136-145) mmol/L POC Potassium (3.3-5.0) mmol/L Potassium (3.5-5.1) mmol/L POC Chloride (101-112) mmol/L Chloride (98-107) mmol/L Carbon Dioxide (21-32) mmol/L POC Total CO2 (24-31) mmol/L Anion Gap (3-11) POC Anion Gap (16-25) mmol/L POC BUN (7-18) mg/dl BUN (6-23) mg/dl Creatinine (0.6-1.4) mg/dl POC Creatinine (0.6-1.3) mg/dl Est Cr Clr Drug Dosing ml/min eGFR BUN/Creatinine Ratio (10-20) Glucose (70-99(Fasting)) mg/dl POC Glucose (other) (70-99) mg/dl Lactate 1.3 (0.4-2.0) mmol/L Calcium (8.6-10.3) mg/dl POC Ioniz Calcium Philippe (1.12-1.32) mmol/l Magnesium (1.7-2.4) mg/dl Total Bilirubin (0.2-1.0) mg/dl AST (13-39) U/L ALT (7-52) U/L Alkaline Phosphatase (34-104) U/L Troponin I High Sens (0-20) pg/ml Total Protein (6.0-8.3) gm/dl Albumin (3.4-5.0) gm/dl Globulin (2.5-4.0) gm/dl Albumin/Globulin Ratio (0.9-2) Nasal Influ A H1 2009 PCR (NotDetected) Adenovirus (PCR) (NotDetected) B. pertussis DNA (PCR) (NotDetected) B.parapertussis DNA PCR (NotDetected) C. pneumoniae DNA (PCR) (NotDetected) Coronavirus OC43 (PCR) (NotDetected) Coronavirus HKU1 (PCR) (NotDetected) Coronavirus 229E (PCR) (NotDetected) SARS-CoV-2 (PCR) (NotDetected) Coronavirus NL63 (PCR) (NotDetected) Human Metapneumovir PCR (NotDetected) Influenza Type B (PCR) (NotDetected) M. pneumoniae (PCR) (NotDetected) Parainfluenza 1 (PCR) (NotDetected) Parainfluenza 2 (PCR) (NotDetected) Parainfluenza 3 (PCR) (NotDetected) Parainfluenza 4 (PCR) (NotDetected) RSV (PCR) (NotDetected) Entero/Rhino (PCR) (NotDetected) Imaging Data Attestation: I personally reviewed and interpreted this imaging study as follows: My Impression: Chest x-ray negative. Airway clear. No pneumothorax. No consolidation. No cardiomegaly or cephalization.. No free air under the diaphragm. No fractures of the skeletal structures. Radiologist's Impression: Chest X-Ray 03/19/24 19:10 Exam(s): XR CXR 1 VIEW EXAM: XR Chest, 1 View CLINICAL HISTORY: Reason for exam: Chest pain, nonspecific. TECHNIQUE: Frontal view of the chest. COMPARISON: 01/18/2022 FINDINGS: Lungs: No consolidation. No overt edema. Pleural space: No pleural effusion. No pneumothorax. Heart: Unremarkable. No cardiomegaly. Bones/joints: Left shoulder arthroplasty. Degenerative changes in the right shoulder. IMPRESSION: No acute findings in the chest. Electronically signed by: Julio Silverman MD 03/19/24 20:29 PM Chest CTA 03/19/24 19:52 Exam(s): CTA CHEST IV Amt: 82 mls optiray 320 EXAM: CT Angiography Chest With Intravenous Contrast CLINICAL HISTORY: Reason for exam: ro PE. TECHNIQUE: Axial computed tomographic angiography images of the chest with intravenous contrast. CTDI is 28.14 mGy and DLP is 873.63 mGy-cm. Automated exposure control was utilized for the study. A dose lowering technique was utilized adhering to the principles of ALARA. MIP reconstructed images were created and reviewed. COMPARISON: 03/14/2022 FINDINGS: Pulmonary arteries: No pulmonary embolism. Aorta: No acute findings. Normal caliber. No dissection. Lungs: Scattered atelectasis in the lungs. No consolidation or interstitial edema. Pleural space: No pleural effusion. No pneumothorax. Heart: Unremarkable. Bones/joints: No acute fracture. Soft tissues: Unremarkable. Lymph nodes: Unremarkable. IMPRESSION: No pulmonary embolism. Electronically signed by: Julio Silverman MD 03/19/24 20:50 PM ECG Data Attestation: I personally reviewed and interpreted this ECG as follows: Additional Comments: EKG #1 at 194: Atrial fibrillation with a rate of 112. QRS and QT intervals within normal limits. No ST elevation or ST depression EKG #2 at 1956 status post atrial fibrillation with Cardizem 20 mg IV push: Atrial fibrillation with a rate of 102. QRS and QTc intervals are within normal limits. No ST elevation or ST depression. MDM Narrative 1945: The patient was evaluated in room D6. A complete history and physical exam was performed Cardiac monitoring: An order was placed for continuous cardiac monitoring. The monitor shows a rate of 110-140 with atrial fibrilation rhythm interpreted by me Large-bore IV access was obtained and Cardizem 20 mg IV push was given to the patient which improved the patient's ventricular rate. 2121: Vital signs stable. Labs and imaging are unremarkable with exception of the patient being positive for influenza. Tamiflu given to the patient. Patient remains in atrial fibrillation on Cardizem drip. Patient be started on heparin drip given his [id number] or and be admitted to the [facility] team. IKE?DS?-VASc Score for Atrial Fibrillation Stroke Risk from [email or web address] on 03/19/2024 All calculations should be rechecked by clinician prior to use RESULT SUMMARY: 3 points Stroke risk was 3.2% per year in >90,000 patients (the [place] Atrial Fibrillation Cohort Study) and 4.6% risk of stroke/TIA/systemic embolism. INPUTS: Age > 1 = 65-74 Sex > 0 = Male CHF history > 0 = No Hypertension history > 1 = Yes Stroke/TIA/thromboembolism history > 0 = No Vascular disease history (prior DE, peripheral artery disease, or aortic plaque) > 0 = No Diabetes history > 1 = Yes Impression & Plan Atrial fibrillation, new onset, Influenza, Atrial fibrillation with RVR Critical Care Time Critical Care Time: Yes Total Critical Care Time: 37 I have personally spent greater than 37 minutes of critical care time in the direct management of this patient. This includes bedside care, interpretation of diagnostic studies, and testing, discussion with consultants, patient, and family members, and other required patient management activities. This 37 minutes is in excess of all separately billable procedures. Discharge Plan Visit Data Chief Complaint: Flu Like Symptoms Stated Complaint: FLU LIKE SX ED Provider: Monico Villela Discharge Problem: Atrial fibrillation, new onset, Influenza, Atrial fibrillation with RVR Patient Disposition: Admitted As Inpatient Forms Stand Alone Forms: My [facility] Prescriptions Prescriptions: No Action clindamycin HCl 300 mg capsule 600 mg PO ONCE Qty: 4 2RF Rx Instructions: take 2 caps 1 hour prior to dental appointment sildenafil 100 mg tablet 100 mg PO DAILY PRN (Reason: sexual activity) Qty: 20 11RF Rx Instructions: administer 30 minutes to 4 hours before activity tadalafil 5 mg tablet 5 mg PO DAILY Qty: 90 3RF Patient Comments: takes at lunch pregabalin 100 mg capsule 100 mg PO QID Qty: 360 1RF pantoprazole 40 mg tablet,delayed release (DR/EC) 40 mg PO QAM Qty: 90 3RF atorvastatin 20 mg tablet 20 mg PO QPM Qty: 90 3RF cyclobenzaprine 5 mg tablet 5 mg PO TID PRN (Reason: muscle spasm) Qty: 60 1RF metformin 500 mg tablet 1,000 mg PO BID Qty: 360 3RF docusate sodium [Stool Softener] 100 mg capsule 400 mg PO QPM acetaminophen 500 mg capsule 1,000 mg PO HS PRN (Reason: Pain) multivit with min-folic acid [[employer] Program Schedule Clerk] 0.4 mg tablet 1 tab PO QAM clotrimazole-betamethasone 1-0.05 % cream 1 applic topical BID PRN ropinirole 2 mg tablet 2 mg PO UD Rx Instructions: takes 1 tab @ supper and then 1 or 2 tabs @ HS [id number] [Move Free Ultra Triple Action] 40-5-3.3 mg Tablet 1 tab PO QAM [place]-3 350 mg-235 mg- 90 mg-597 mg capsule,delayed release(DR/EC) 1 cap PO TIDM psyllium husk [Fiber (psyllium husk)] 0.52 gram capsule 0.52 g PO TID fluticasone propionate 50 mcg/actuation spray,suspension 2 spray intranasal BID Rx Instructions: administer into each nostril. Supply with 3 month supply at once spironolactone 25 mg tablet 25 mg PO QAM amlodipine 10 mg tablet 10 mg PO QAM celecoxib [Celebrex] 100 mg capsule 100 mg PO TID Rx Instructions: takes 1 tablet with every meal losartan 100 mg tablet 100 mg PO QAM Referrals Referrals: Kelton Wright DO [Primary Care Provider] -
--- NOTE | 2024-03-19 22:26 | History & Physical Report ---
Date of Service March 19, 2024 Assessment & Plan (1) Atrial fibrillation with RVR: (2) Influenza: (3) Hypercalcemia: (4) Hypomagnesemia: Plan 73-year-old male PMHx ankylosing spondylitis, HLD, BPH, DDD, restless leg syndrome, nausea reflux presenting to ED for ongoing cough, myalgias, and SOB. States that his was previously diagnosed with flu and although they tried to limit contact to each other, he started experiencing similar symptoms that she was. ED workup reveals no leukocytosis, sodium 135, calcium 11.2, magnesium 1.6, normal troponin. Nasal swab positive for influenza A, CXR without acute findings and chest CTA without PE. EKG did reveal A-fib with RVR (112 bpm). Patient was started on Tamiflu, heparin, and diltiazem in ED. #A-fib RVR, new onset No previous history of A-fib, likely 2/2 recent illness (influenza A). Started on heparin drip for anticoagulation in ED as well as diltiazem drip for rate control. - EKG on admission showed A-fib, rate 112; telemetry revealing A-fib rate around 90s; Echo pending - TSH pending - Mg 1.6- repleting - Continue diltiazem drip to achieve rate control - Started on heparin- continue to completion - [id number] score 3 (age, HTN, DM); HAS-BLED score 2 (age, HTN) #Influenza SOB, cough, and myalgias. Recent exposure of requiring hospitalization for influenza. - No leukocytosis, CXR without acute findings, Pro-Carlos pending - Tamiflu started in ED- Continue - O2 prn; no O2 at baseline #Hypercalcemia Asymptomatic currently; H/o hypercalcemia and addressed in PCP note 01/29/2024- stable since 2018 w/ previously benign workup - Ca 11.2; WNL albumin - Will trend daily and monitor unless significant change #Hypomagnesemia Mg 1.6 on admission; no prior incidence of hypomagnesemia - MgSO4 2g IV - BMP am #HTN- Amlodipine, losartan #HLD- Atorvastatin #Ankylosing spondylitis- Follows with rheumatology; stable #Prediabetes- Metformin, continue #BPH- Follows w/ urology, tadalafil, sildenafil (prn); stable #GERD- Pantoprazole #?RLS- Ropinirole, pregabalin, cyclobenzaprine Dispo: Admit, PCU VTE prophylaxis: Heparin This document was dictated utilizing [employer]. Please excuse any grammatical errors that may be secondary to use of this software. Admission and Anticipated Discharge Date Admission Date: 03/19/2024 History of Present Illness Chief Complaint: Flulike symptoms Primary Care Provider: Kelton Wright DO 73-year-old male PMHx ankylosing spondylitis, HLD, BPH, DDD, restless leg syndrome, nausea reflux presenting to ED for ongoing cough, myalgias, and SOB. States that his was previously diagnosed with flu and although they tried to limit contact to each other, he started experiencing similar symptoms that she was. Was having cough that was occasionally productive with clear sputum, and very minimal SOB. Additionally was having generalized body aches that come and go. No point did he have chest pain, abdominal pain, N/V/D/C, or fever/chills. States he came to the ED today because he wanted to be tested for influenza and also wanted to have access to treatment if it was needed in the hospital was the only place where he could have both at the same time. He states that this is when he was informed that he was in A-fib which was new for him. Was not having true concerns of symptoms related to this, but then afterthought states that he has had episodes where he feels that his heart is fluttering at random times, he just never thought much of it. No known thyroid disease. ED workup reveals no leukocytosis, sodium 135, calcium 11.2, magnesium 1.6, normal troponin. Nasal swab positive for influenza A, CXR without acute findings and chest CTA without PE. EKG did reveal A-fib with RVR (112 bpm). Patient was started on Tamiflu, heparin, and diltiazem in ED. Please see Dr. Ivory's attestation for adjustments/additions to treatment plan. Allergies Allergy/AdvReac Type Severity Reaction Status Date / Time Penicillins Allergy Intermediate Hives Verified 03/06/24 13:31 gabapentin AdvReac Intermediate visual Verified 03/06/24 13:31 hallucination hydrocodone AdvReac Intermediate hallucinati Verified 03/06/24 13:31 ons Home Medications Medication Instructions Recorded Confirmed Type docusate sodium 100 mg capsule 400 mg PO HS 11/18/18 03/19/24 History (Stool Softener) cartilage 40 mg-collagen II-boron 1 tab PO QAM 01/16/19 03/19/24 History 5 mg-hyaluronate sod 3.3 mg tablet (Move Free Ultra Triple Action (boron)) omega 3 350 mg-dha 235 mg-epa 90 1 cap PO TIDM 01/21/20 03/19/24 History mg-fish oil 597 mg capsule,delay rel (Henry-3) acetaminophen 500 mg capsule 1,000 mg PO HS Pain 03/24/21 03/19/24 History multivitamin with minerals-folic 1 tab PO QAM 01/04/22 03/19/24 History acid 0.4 mg tablet ([employer]) psyllium husk 0.52 gram capsule 0.52 g PO TIDM 01/04/22 03/19/24 History (Fiber (psyllium husk)) fluticasone propionate 50 2 spray intranasal AMHS 05/10/22 03/19/24 History mcg/actuation nasal spray,suspension clindamycin HCl 300 mg capsule 600 mg (2 x 300 mg) PO ONCE #4 caps 07/25/23 03/19/24 Rx sildenafil 100 mg tablet 100 mg PO DAILY PRN sexual 08/03/23 03/19/24 Rx activity #20 tabs pregabalin 100 mg capsule 100 mg PO QID #360 caps 09/14/23 03/19/24 Rx pantoprazole 40 mg tablet,delayed 40 mg PO QAM #90 tabs 11/08/23 03/19/24 Rx release amlodipine 10 mg tablet 10 mg PO QAM 11/21/23 03/19/24 History celecoxib 100 mg capsule (Celebrex) 100 mg PO TID 11/21/23 03/19/24 History losartan 100 mg tablet 100 mg PO QAM 11/21/23 03/19/24 History spironolactone 25 mg tablet 25 mg PO QAM 11/21/23 03/19/24 History cyclobenzaprine 5 mg tablet 5 mg PO TID PRN muscle spasm #60 12/03/23 03/19/24 Rx tabs ropinirole 2 mg tablet 2 mg PO UD 03/06/24 03/19/24 History atorvastatin 20 mg tablet 20 mg PO HS 03/19/24 03/19/24 History cyanocobalamin (vitamin B-12) 50 50 mcg PO QDL 03/19/24 03/19/24 History mcg tablet (Vitamin B-12) metformin 500 mg tablet 1,000 mg PO BIDM 03/19/24 03/19/24 History tadalafil 5 mg tablet 5 mg PO QDL 03/19/24 03/19/24 History Past Med/Surg History Problem List Hypomagnesemia Atrial fibrillation with RVR (Acute) Influenza (Acute) Atrial fibrillation, new onset (Acute) Hyperlipidemia Ankylosing spondylitis 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 Stable. PTH, PTHrP, Vit D 1,25 OH, Vit D 25OH, SPEP unremarkable. CT chest - no evidence of granulomatous disease. Monitoring at routine office visits. Nasal septal deviation Hearing deficit B/L GOEL Spinal stenosis Osteoarthritis HTN (hypertension) Cyst of kidney, acquired left side, stable. Hunner's ulcer Cervical stenosis of spinal canal Surgical History History of carpal tunnel surgery of left wrist Status post epidural steroid injection Status post surgical removal of malignant neoplasm of skin SHOULDER AREA>MELANOMA Status post cataract extraction of both eyes with insertion of intraocular lens S/P cubital tunnel release BL History of fusion of cervical spine 11/2017 [facility]. glidescope #3. 1 attempt. GETA. ROM WNL. Difficult intubation 03/16/17= LEFT TSA= GRADE VIEW 1 WITH GLIDESCOPE#4 ETT 8.0 AT [facility] Hx of vasectomy History of bladder surgery bladder ulcer repair History of total shoulder replacement left History of total knee replacement left/right History of total hip arthroplasty B/L History of colonoscopy 05/2022, Repeat 10 yrs, No further screening Hx of wisdom tooth extraction Hx of eye surgery SCLERAL BUCKLE Family History Mother Lung cancer Father Diabetes Heart disease Myocardial infarction Other No family history of adverse response to anesthesia Denies family history of Ovarian cancer Prostate cancer Breast cancer Colorectal cancer Stroke Social History Smoking Status: Former smoker Tobacco Type: Cigarettes Age Started Using Tobacco: 22; Age Quit Using Tobacco: 24; packs per day: 1.5; Second Hand Exposure: No; Do You Dip or Chew Tobacco: No; Hx Alcohol Use: Yes Alcohol type: beer and wine Alcohol Intake Frequency: Monthly or Less Hx Substance Use: No Preferred Language: [place] Communication Ability: Effective Visual Impairment: Diminished Hearing Ability: Use of Hearing Aid Sounding Device Operator Required: No marital status: Current Living Situation: Spouse current occupational status: retired How many Children do You have: 2 Feels Safe at Home: Yes Childhood Exposure to Second-Hand Smoke: Yes Diet: low carbohydrate and low salt caffeine: Yes Dental Care, Regularly: Yes Physical Activity Frequency: 1-2 Times per Week Physical Activity Frequency Comment: walk Seatbelt Use: always Sunscreen Use: Yes Assistive Devices: Glasses and Hearing Aid - Bilateral Review of Systems Review of Systems: All systems reviewed & are unremarkable except as noted in Subjective Physical Exam Physical Exam: General: No acute distress Skin: Warm and dry, without rashes or lesions. No cyanosis or clubbing Head: Normocephalic, atraumatic Eyes: PERRL, conjunctivae clear, sclera non-icteric ENT: External ear and ear canal without swelling; nose atraumatic; good dentition, tongue normal appearance, pharynx normal Neck: Supple, no LAD; no JVD Cardio: Irregularly irregular rhythm, tachycardic ~ 90-100s, no M/G/R, S1 and S2 normal Resp: No respiratory distress, Lungs CTA in all lobes bilaterally, no wheezes, rales, or rhonchi Abdomen: Soft, symmetric, nontender; No masses or hepatosplenomegaly; Bowel sounds normoactive MSK: No deformities; pulses palpable and equal; no edema. Neuro: Awake, alert; CN grossly intact Psych: Appropriate mood and affect; good judgement and insight. Results & Data Results & Data Vital Signs (Past 12 Hours) Vital Signs Temp Pulse Pulse Resp BP BP Pulse Ox 03/19/24 21:30 96 H 23 140/86 94 03/19/24 20:55 89 21 157/71 H 94 03/19/24 20:39 102 H 25 H 157/71 H 94 03/19/24 20:06 91 H 21 135/84 94 03/19/24 19:50 123 H 03/19/24 19:46 03/19/24 19:46 03/19/24 19:05 36.9 C 108 H 18 165/100 H 95 O2 Del Method 03/19/24 21:30 03/19/24 20:55 Room Air 03/19/24 20:39 03/19/24 20:06 03/19/24 19:50 03/19/24 19:46 Room Air 03/19/24 19:46 Room Air 03/19/24 19:05 Room Air Laboratory Results 03/19/24 03/19/24 03/19/24 Unknown 20:12 19:45 WBC 8.99 RBC 4.33 L Hgb 14.0 POC Hgb 13.6 L Hct 39.4 L POC Hct 40 L MCV 91.0 MCH 32.3 MCHC 35.5 RDW Std Deviation 40.4 RDW Coeff of Anay 12.1 Plt Count 252 MPV 9.5 Immature Gran % (Auto) 0.3 Neut % (Auto) 71.0 Lymph % (Auto) 17.1 Cherry % (Auto) 8.5 Eos % (Auto) 2.4 Baso % (Auto) 0.7 Neut # (Auto) 6.38 Lymph # (Auto) 1.54 Cherry # (Auto) 0.76 H Eos # (Auto) 0.22 Baso # (Auto) 0.06 Immature Gran # (Auto) 0.03 PT 10.0 INR 0.9 APTT 27 PTT Ratio 1.0 POC Sodium 137 Sodium 135 L POC Potassium 3.7 Potassium 3.9 POC Chloride 104 Chloride 102 Carbon Dioxide 24 POC Total CO2 21 L Anion Gap 9 POC Anion Gap 17.0 POC BUN 17 BUN 18 Creatinine 0.91 POC Creatinine 0.9 Est Cr Clr Drug Dosing 87.9 eGFR 88.99 BUN/Creatinine Ratio 19.8 Glucose 101 H POC Glucose (other) 102 H Lactate 1.3 Calcium 11.2 H POC Ioniz Calcium Philippe 1.34 H Magnesium 1.6 L Total Bilirubin 0.3 AST 25 ALT 26 Alkaline Phosphatase 73 Troponin I High Sens 5.7 Total Protein 7.8 Albumin 4.8 Globulin 3.0 Albumin/Globulin Ratio 1.6 Nasal Influ A H1 2008 PCR Adenovirus (PCR) B. pertussis DNA (PCR) B.parapertussis DNA PCR C. pneumoniae DNA (PCR) Coronavirus OC43 (PCR) Coronavirus HKU1 (PCR) Coronavirus 229E (PCR) SARS-CoV-2 (PCR) Coronavirus NL63 (PCR) Human Metapneumovir PCR Influenza Type B (PCR) M. pneumoniae (PCR) Parainfluenza 1 (PCR) Parainfluenza 2 (PCR) Parainfluenza 3 (PCR) Parainfluenza 4 (PCR) RSV (PCR) Entero/Rhino (PCR) 03/19/24 19:09 WBC RBC Hgb POC Hgb Hct POC Hct MCV MCH MCHC RDW Std Deviation RDW Coeff of Anay Plt Count MPV Immature Gran % (Auto) Neut % (Auto) Lymph % (Auto) Cherry % (Auto) Eos % (Auto) Baso % (Auto) Neut # (Auto) Lymph # (Auto) Cherry # (Auto) Eos # (Auto) Baso # (Auto) Immature Gran # (Auto) PT INR APTT PTT Ratio POC Sodium Sodium POC Potassium Potassium POC Chloride Chloride Carbon Dioxide POC Total CO2 Anion Gap POC Anion Gap POC BUN BUN Creatinine POC Creatinine Est Cr Clr Drug Dosing eGFR BUN/Creatinine Ratio Glucose POC Glucose (other) Lactate Calcium POC Ioniz Calcium Philippe Magnesium Total Bilirubin AST ALT Alkaline Phosphatase Troponin I High Sens Total Protein Albumin Globulin Albumin/Globulin Ratio Nasal Influ A H1 2008 PCR DETECTED A Adenovirus (PCR) Not Detected B. pertussis DNA (PCR) Not Detected B.parapertussis DNA PCR Not Detected C. pneumoniae DNA (PCR) Not Detected Coronavirus OC43 (PCR) Not Detected Coronavirus HKU1 (PCR) Not Detected Coronavirus 229E (PCR) Not Detected SARS-CoV-2 (PCR) Not Detected Coronavirus NL63 (PCR) Not Detected Human Metapneumovir PCR Not Detected Influenza Type B (PCR) Not Detected M. pneumoniae (PCR) Not Detected Parainfluenza 1 (PCR) Not Detected Parainfluenza 2 (PCR) Not Detected Parainfluenza 3 (PCR) Not Detected Parainfluenza 4 (PCR) Not Detected RSV (PCR) Not Detected Entero/Rhino (PCR) Not Detected Diagnostic Findings Chest X-Ray 03/19/24 19:10 Exam(s): XR CXR 1 VIEW EXAM: XR Chest, 1 View CLINICAL HISTORY: Reason for exam: Chest pain, nonspecific. TECHNIQUE: Frontal view of the chest. COMPARISON: 01/18/2022 FINDINGS: Lungs: No consolidation. No overt edema. Pleural space: No pleural effusion. No pneumothorax. Heart: Unremarkable. No cardiomegaly. Bones/joints: Left shoulder arthroplasty. Degenerative changes in the right shoulder. IMPRESSION: No acute findings in the chest. Electronically signed by: Julio Silverman MD 03/19/24 20:29 PM Chest CTA 03/19/24 19:52 Exam(s): CTA CHEST IV Amt: 82 mls optiray 320 EXAM: CT Angiography Chest With Intravenous Contrast CLINICAL HISTORY: Reason for exam: ro PE. TECHNIQUE: Axial computed tomographic angiography images of the chest with intravenous contrast. CTDI is 28.14 mGy and DLP is 873.63 mGy-cm. Automated exposure control was utilized for the study. A dose lowering technique was utilized adhering to the principles of ALARA. MIP reconstructed images were created and reviewed. COMPARISON: 03/14/2022 FINDINGS: Pulmonary arteries: No pulmonary embolism. Aorta: No acute findings. Normal caliber. No dissection. Lungs: Scattered atelectasis in the lungs. No consolidation or interstitial edema. Pleural space: No pleural effusion. No pneumothorax. Heart: Unremarkable. Bones/joints: No acute fracture. Soft tissues: Unremarkable. Lymph nodes: Unremarkable. IMPRESSION: No pulmonary embolism. Electronically signed by: Julio Silverman MD 03/19/24 20:50 PM Medications Administered NSS 1L Tamiflu 75 p.o. Heparin IV Diltiazem 20 mg IV, 125 mg drip ECG Additional Comments: A-fib with RVR, nonspecific ST wave abnormality 112 bpm, QRS 84, QT/QTc 316/431, PRT */-7/69 Code Status & VTE Plan Code Status Full Supervising Physician Co-Signing Physician Notes Patient seen and examined, chart reviewed, case discussed with RICHARD Pierre and I Agree with the assessment and plan as documented above. In brief, patient is a very pleasant 73-year-old male with history of ankylosing spondylitis, hyperlipidemia presenting from home with influenza infection, found to have new onset atrial fibrillation. Patient's recently admitted with the flu. Patient developed flulike symptoms over the last several days. In the ER, found to be in atrial fibrillation with RVR. Patient has no documented history of prior A-fib however, he does report several occasions in which he felt palpitat ions in the past. No chest pain, shortness of breath, dizziness or syncope reported. On exam heart rate has improved down to 83 bpm, patient with markedly elevated blood pressure presently 200/120. He is resting comfortably, no acute distress + S1, S2, irregularly irregular, no murmur/rub/gallops Lungs CTA with no rales/rhonchi/wheezes Abdomensoft, nontender, nondistended Extremitieswarm, well-perfused Labs and images reviewed Assessment/plan: Atrial fibrillationnew onset. Patient initiated on diltiazem drip in the ER for rate control as well as heparin Continue diltiazem for now, heparin drip Check 2D echo Replete electrolytes as needed Influenza -Symptomatic care PG Care Time/CCT Total # of Minutes Spent Total Time Spent with Patient: Total time spent is greater than 50% in coordination of care (as documented) at patient's floor/unit and/or counseling patient: Coding Level of Care Code 72807 INT INP/OBS CARE 3/75MIN Diagnoses Atrial fibrillation with RVR I48.91 Influenza J11.1 Hypercalcemia E83.52 Hypomagnesemia E83.42
[2024-03-19] MEDS: HEPARIN 25000 UNIT/500 ML 25,000 UNITS/500 ML BAG IV SCH (22:32)
[2024-03-19] MEDS: HEPARIN SOD (PORCINE) 1000 UNIT/ML IV ONE (22:34)
[2024-03-19] MEDS ORDERED: MELATONIN 3 MG TAB PO PRN (23:05)
[2024-03-19] MEDS ORDERED: ONDANSETRON INJ 2 MG/ML 2 ML VIAL IV PRN (23:05)
[2024-03-19] MEDS ORDERED: CYCLOBENZAPRINE HCL 10 MG TAB PO PRN (23:11)
[2024-03-19 23:30] LABS: Thyroid Stimulating Hormone 2.02 uIu/ml (0.300-4.500)
[2024-03-19] MEDS: MAGNESIUM SULFATE / D5W 1 GM/100 ML BAG IV SCH (23:35)
[2024-03-20] MEDS: guaiFENesin 600 MG TABCR PO STA (03:24)
[2024-03-20] MEDS: rOPINIRole HCL 2 MG TABLET PO SCH ×2 (03:48→03:50)
--- OUTSIDE RECORDS SUMMARY | 2024-03-20 05:01 | External Medical Summary | Continuity of Care Document ---
Author Name Unknown Organization [facility] [address] [facility] [address] [id number] Care Team Providers Care Rn Coronary Care Unit Name Role Phone Kelton Wright Primary Care Physician [phone] [phone] [facility] [id number] Date(s): 03/05/24 - 03/05/24 [facility] [address] [facility] [address] [place], [place] [address]K[address] [phone] Encounter Diagnosis Inflamed seborrheic keratosis(Discharge Diagnosis) - 03/05/24 History of melanoma(Discharge Diagnosis) - 03/05/24 History of dysplastic nevus(Discharge Diagnosis) - 03/05/24 Discharge Disposition: Home or Self Care Attending Physician: RICHARD Azevedo Dawn M Referring Physician: RICHARD Azevedo Dawn M Allergies, Adverse Reactions, Alerts Substance Criticality Severity Reaction Reaction Severity Status Vicodin Hallucinates Active HYDROcodone Bitartrate Hallucinations Active penicillins rash Active hylan G-F 20 1 Swelling Unknown Active HYDROcodone Unable to assess criticality Moderate hallucinations Active 1Outside Source Comment: Severe swelling and stiffness Assessment and Plan Extracted from: Title:Dermatology Office Visit Note Author:Sweta mullins PA-C, Dawn M Date:03/05/24 1.Inflamed seborrheic sabrina tosis NEW - INFLAMED SEBORRHEIC KERATOSES - discussed the likely benign and genetic nature of these lesions._ cryo x 1 2.History of melanoma 3.History of dysplastic nevus Reviewed sun protection with SPF 30 or higher applied every 80 minutes and use of sun protective clothing and hat. Call with questions or concerns. Follow up in 6 months. Patient in agreement with plan. Immunizations Given and Recorded Vaccine Date Status Refusal Reason influenza virus vaccine, inactivated 12/24/19 Give n influenza virus vaccine, inactivated 11/11/19 Cory rded influenza virus vaccine, inactivated 12/22/17 Cory rded influenza virus vaccine, inactivated 11/20/16 Cory rded influenza virus vaccine, inactivated 11/20/16 Cory rded influenza virus vaccine, inactivated 01/24/16 Give n influenza virus vaccine, inactivated 10/31/12 Give n tetanus/diphtheria/pertuss, acel (Tdap) 06/12/17 G iven tetanus/diphtheria/pertuss, acel (Tdap) 04/17/07 R ecorded pneumococcal 23-valent vaccine 06/12/17 Given zoster vaccine, inactivated 06/12/17 Given pneumococcal 13-valent vaccine 10/29/15 Given zoster vaccine live 06/17/14 Given Medications amLODIPine 10 mg oral tablet Start: 06/01/23 3:31:00 PM EDT, 90 tab, 0 Refill(s) Start Date: 06/01/23 Status: Ordered atorvastatin 20 mg oral tablet See Instructions, Disp# 90 tab, Refills: 0, TAKE 1 TABLET DAILY, Pharmacy: [facility] Start Date: 07/01/20 Status: Ordered CeleBREX 100 mg oral capsule Start: 03/11/21 11:42:00 AM EST, 1 cap, PO, tid Start Date: 03/11/21 Status: Ordered clindamycin Start: 09/06/22 10:16:00 AM EDT, Prior to dental visits Start Date: 09/06/22 Status: Ordered Colace 100 mg oral capsule Start: 09/09/14 7:53:00 PM EDT, 4 cap, PO, Daily Start Date: 09/09/14 Status: Ordered cyclobenzaprine 10 mg oral tablet Start: 04/21/19 2:42:00 PM EDT, See Instructions, Disp# 90 tab, Refills: 4, TAKE 1 TABLET DAILY NEEDED AND NOT WITH CYMBALTA CONCURRENTLY, Pharmacy: [facility] Start Date: 04/21/19 Status: Ordered Flonase 50 mcg/inh nasal spray Start: 04/21/19 2:39:00 PM EDT, 1 spray, each nostril, bid, Disp# 3 each, Refills: 4, Pharmacy: [facility] Start Date: 04/21/19 Stop Date: 07/14/20 Status: Ordered hydroCHLOROthiazide Start: 01/26/23 1:43:00 PM EST Start Date: 01/26/23 Status: Ordered ketoconazole 2% topical cream Start: 03/30/23 11:25:00 AM EST, 1 appl, topical, bid, Disp# 30 g, Refills: 3, apply to groin, Pharmacy: [id number] Start Date: 03/30/23 Status: Ordered losartan 100 mg oral tablet TAKE 1 TABLET BY MOUTH ONCE DAILY Start Date: 09/26/22 Status: Ordered Metamucil Paxton Smooth Texture 3.4 g/11 g oral powder for reconstitution Start: 11/21/11 8:29:00 AM EDT, 3.4 g =, PO, bid Start Date: 11/21/11 Status: Ordered metFORMIN 500 mg oral tablet Start: 03/16/22 11:43:00 AM EST Start Date: 03/16/22 Status: Ordered Multiple Vitamins oral capsule Start: 03/07/21 1:20:00 PM EST, 1 cap, PO, Daily Start Date: 03/07/21 Status: Ordered omega-3 polyunsaturated fatty acids 1100 mg oral delayed release capsule Start: 06/23/10 10:54:00 AM EDT, 1 cap, PO, bid Start Date: 06/23/10 Status: Ordered pantoprazole 40 mg oral delayed release tablet Start: 03/16/22 11:42:00 AM EST Start Date: 03/16/22 Status: Ordered pregabalin 100 mg oral capsule Start: 06/01/23 3:31:00 PM EDT, 20 each, 0 Refill(s), TAKE 1 CAPSULE BY MOUTH TWICE DAILY Start Date: 06/01/23 Status: Ordered pregabalin 50 mg oral capsule Start: 09/06/22 10:18:00 AM EDT, 1 cap, PO, tid Start Date: 09/06/22 Status: Ordered rOPINIRole 2 mg oral tablet See Instructions, Disp# 360 tab, Refills: 0, TAKE 1 TO 2 TABLETS TWICE AVRIL, Pharmacy: [facility] Start Date: 08/08/20 Status: Ordered Shingrix intramuscular injection Start: 12/26/18 3:45:00 PM EST, 0.5 mL, IM, ONCE, Disp# 1 each, Refills: 1, Note to Pharmacy: please administer; this is his second dose, Pharmacy: [facility]/pharmacy #[id number] Start Date: 12/26/18 Status: Ordered sildenafil 100 mg oral tablet Start: 03/07/21 1:20:00 PM EST, 1 tab, PO, Daily, PRN: as needed for erectile dysfunction Start Date: 03/07/21 Status: Ordered spironolactone 25 mg oral tablet Start: 06/01/23 3:31:00 PM EDT, 90 tab, 0 Refill(s) Start Date: 06/01/23 Status: Ordered traMADol 50 mg oral tablet Start: 06/14/18 12:59:00 PM EDT, 1 tab, PO, q4h, PRN: as needed for pain Start Date: 06/14/18 Status: Ordered Tylenol 500 mg oral tablet Start: 03/07/21 1:19:00 PM EST, 2 tab, PO, Daily Start Date: 03/07/21 Status: Ordered Vitamin B12 Start: 06/01/23 3:34:00 PM EDT, 0.5 tab, PO, takes once per week Start Date: 06/01/23 Status: Ordered Mental Status 03/05/24 Barriers to Learning one year None evide nt Mandatory Health Literacy Documentation Yes Communication Barrier Present No Health Literacy Communication Barriers N ever Primary Language Kinyarwanda Problem List Condition Confirmation Course Effective Dates Status H ealth Status Informant Actinic keratosis Confirmed Active Lumbar facet arthropathy Confirmed Active Allergic conjunctivitis Confirmed Active BPH with urinary obstruction Confirmed Active Left carpal tunnel syndrome Confirmed Active Chronic lower back pain Confirmed Active Elevated cholesterol Confirmed Active Generalized osteoarthrosis 1 Confirmed Active HTN (hypertension) Confirmed Active Impaired fasting glucose Confirmed Active Mitral regurgitation Confirmed Active Medicare annual wellness visit, subsequent Confirmed Active Prediabetes Confirmed Active Anne Marie's syndrome Confirmed Active Renal cysts, acquired, bilateral Confirmed Active RLS (restless legs syndrome) Confirmed Active Spinal stenosis of lumbar region with neurogenic claudication Confirmed Active Spondylitis NOS Confirmed Active Testicular cyst Confirmed Active History of prior cigarette smoking Confirmed Active Weight disorder Confirmed Active 1hand, hip, knee Diagnosis Diagnosis Type Effective Dates Health Status Clinical Service Informant History of melanoma Discharge Diagnosis 03/05/24 Inflamed seborrheic keratosis Discharge Diagnosis 03/05/24 History of dysplastic nevus Discharge Diagnosis 03/05/24 Procedures Procedure Date Related Diagnosis Body Site Status Shave biopsy 03/30/23 Completed Cataract of lens capsule of bilateral eyes 1 05/18/22 Completed Excision 05/01/19 Completed Shave biopsy and cauterisation of skin 04/22/19 Completed X-ray of right knee 2 04/17/19 Com pleted Total replacement of right knee joint 03/04/19 Completed Knee replacement 3 02/2019 Comple patrizia Surgery 2019 Completed Chest X-ray 4 03/25/18 Completed Surgery 5 01/2018 Completed Cubital tunnel release 6 01/10/18 Completed Surgery 7 11/21/17 Completed Surgery 8 11/2017 Completed MRI of cervical spine 9 10/03/17 C ompleted MR arthrogram of right shoulder 10, 11 09/26/17 Completed Cystoscopy 12 09/12/[address] of abdomen 13 08/03/17 Complete d Ultrasound of kidney 14 07/25/17 C ompleted Arthroplasty of left shoulder 15 03/16/17 Completed X-ray tomography of left shoulder 16 03/16/17 Completed Biopsy of bladder 17 09/19/16 Comp leted Radiofrequency ablation of n erve root of lumbar spine using fluoroscopic guidance 18 08/10/16 Completed Local anesthetic lumbar epid ural block 19 07/27/16 Completed IVU - Intravenous urogram 20 07/13/16 Completed Epidural block 21 07/06/16 Complet ed Ablation - genitofemoral ner ve under ultrasound 22 04/18/16 Completed Shoulder X-ray 23 04/07/16 Complet ed Genitofemoral nerve block 24 12/09/15 Completed Ultrasound of kidney 25 10/14/15 C ompleted right foot x-ray 26 09/16/13 Compl eted lumbar spine eval-[facility] 04/01/12 Completed Colonoscopy 27, 28 01/31/12 Comple patrizia MRI of lumbar spine 29 12/22/09 Co mpleted arthoscopy of left knee 02/12/09 C ompleted THR - Total hip replacement 30 04/13/03 Completed Left shoulder 01/1899 Completed colonoscopy 10/15 Complete d Lumbar epidural steroid injection Completed retinal surgery 11/18 Com pleted Vasectomy Completed 1april 2022 2Six weeks status post right total knee replacement. 3right knee 4No active disease in the chest. 5bi-lateral elbow surgery with carpel tunnel 6bileteral Kelton hernandez 7#1 anterior cervical discetomy bilateral foraminotomies C6-7. #2 antrior cervical arthrodesis C6-7.#3 a splint of cortical allograft filled with DBM 8mm in height C6-7. #4 application of meraz plate and screws across C6-7. 8cervical spine surgery 9moderate to advanced multilevel cervical spondylosis. This is greated at C4-5 and C6-7 10Small partial tears within distal supraspinatus and infraspinatus tendons. Circumferential degeneration/tear in labrum. Moderate to severe osteoarthritis at the glenohumeral joint. Grade II acromioclaviular separation. 11Fluoroscopic guided right shoulder arthrogram without immediate complication. Total injected volumewas 14cc. MR portion of exam will be dictated separately. 12Laser cautery of excess tissue 13Multiple cysts, including a 3.4 cm left renal cyst which corresponds to the lesion shown on ultrasound of 07/25/2017. No enhancing renal lesion. Several subcentimeter right renal lesions wich are too small to characterize but favors a cyst. 14no evidence for hydronephrosis. Mild increase in prominence and complexity of a mid pole left renalcyst currently had a maxillary dimension of 3.8 cm, A repeat multiphase CT eval is suggested 15pathology-degeberatuve joint disease 16Expected postoperative findings status post left shoulder arthroplasty. No acute fracture is seen 17ulcer on anterior wall 18Patient tolerated well. 19PG Pain management 20Compared to CT abdomen 04-26-11. Kidneys are normal in size and without hydronephrosis. No renal calculi are identified. No enhancing renal cortical mass. No evidence of urothelial lesion is seen within the renal pelvis bilaterally or along the course of the ureters. Bladder, prostate, and seminal vesicles were not evaluated due to extensive streak artifact from bilateral hip arthroplasties. 21L4,L5 and S1 medial branch block 22Jennifer DO [place] - [facility] 23No acute fracture or dislocation within the left shoulder Degenerative changes as described above. 24by Lillie Valera DO 25Two suspected left renal cysts. No dyronephrosis. 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 Moderate-sized right subarticular disc extrusion at L2-L3. Right foraminal disc extrusion at T12--L1. Mild central canal narrowing at L2-L3 & L3-L4. 30left Social History Social History Type Response Tobacco Former smoker, Cigar ettes, 1.5 per day. 6 year(s). Total pack years: 9.5. Started age 18 Years. Stopped age 24 Years. Smoking Status Former Smoker, quit > 1 yr Sex Male Sex Representation Male (finding) Dermatology Outpatient Note * RICHARD Azevedo, Ida Harris: PERFORM Event Display: Dermatology Outpt Note Authored Date: Chief Complaint Spots on right scalp he would like checked. Rubbing on hats and inflamed and irritated x months worsening. History of Present Illness ERIC URIAS Williams [id number] old patient returning today with a chief complaint ofSpots onright scalp he would like checked. Rubbing on hats and inflamed and irritated x months worsening. irritation in groin area improves with ketoconazole 2% cream. He denies itching, bleeding, oozing, crusting or evolving lesions. Dysplastic nevusright posteriorknee03/30/23 Patient has a past personal history of skin cancer: melanoma left posterior shoulder excised 05/01/2019 0.5mm depth. Patient uses sunscreen. [place]. now retired in [employer] Review of Systems Denies fever, chills, sweats, night sweats, weight loss, headache, visual change, stomach upset diarrhea and joint pain. Physical Exam Constitutional: Generally well appearing, well developed. Appears stated age. Ears, nose, throat and mouth: Lips, teeth, gums and tongue without deformity, lesion, mass, inflammation. Eyes: Conjunctivae and lids without noted inflammation, lesion, mass, deformity or drainage. Neck: Thyroid without enlargement, tenderness to palpation or mass. Cardiovascular: Swelling of the lower extremities not noted. Extremities pink, warm and dry. Extremities: Digits and nails without clubbing, cyanosis, petechiae, signs of ischemia, infectionor inflammation. Lymph: No anterior/posterior cervical lymphadenopathy, no axillary lymphadenopathy Neurological / Psychiatric: Oriented to person, place and time. Appropriate mood and affect. No notable depression, anxiety or agitation. Complete skin exam was performed today including head, neck, chest, axillae, abdomen, groin, buttocks, back, bilateral upper and bilateral lower extremities. Palpation of the scalp, inspection of hair of scalp, eyebrows and finger and toenails was performed. The exam was within normal limits the exception of: PATIENT DECLINED PECAN HULLER RIGHT POSTERIOR KNEE - no recurrent dysplastic nevus BACKhyperkeratotic plaques and papules consistent with seborrheic keratoses RIGHT TEMPORAL SCALP - pink based hyperkeratotic plaques and papules consistent with inflamedseborrheic keratoses - cryo x 1 no recurrent skin cancer PROCEDURE: Cryotherapy performed to inflamed seborrheic keratosis x 1following verbal consent, time out and allowing time for questions. Alternative therapies were discussed, and education on wound healing,risk of thermal injury, dyspigmentation, infection and scar formation were performed. Wound care i nstruction was provided. Patient was without concerns after questions answered after the procedure. Assessment/Plan 1.Inflamed seborrheic keratosis NEW - INFLAMED SEBORRHEIC KERATOSES - discussed the likely benign and genetic nature of these lesions._ cryo x 1 2.History of melanoma 3.History of dysplastic nevus Reviewed sun protection with SPF 30 or higher applied every 80 minutes and use of sun protective clothing and hat. Call with questions or concerns. Follow up in 6 months. Patient in agreement with plan. 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 Testicular cyst Weight disorder Resolved Acute bronchitis BRBPR - Bright red blood per rectum Hunner's ulcer Hypercalcemia Retinal hole or tear, bilateral Right rotator cuff tear Testicular pain, left Procedure/Surgical History Shave biopsy| Service Date: 4Cataract of lens capsule of bilateral eyes| Service Date: 05/18/2022Excision| Service Date: 05/01/2019Shave biopsy and cauterisation of skin| ServiceDate: 04/22/2019X-ray of right knee| Service Date: 04/17/2019Total replacement of right knee joint| Service Date: 03/04/2019Surgery| Service Date: 2019Knee replacement| Service Date: 02/2019Chest X-ray| Service Date: 03/25/2018Surgery| Service Date: 01/2018Cubital tunnel release| Service Date: 01/10/2018Surgery| Service Date: 11/21/2017Surgery| Service Date: 11/2017MRI of cervical spine| Service Date: 10/03/2017MR arthrogram of right shoulder| Service Date: 09/26/2017Cystoscopy| Service Date: 09/12/2017CT of abdomen| Service Date: 08/03/2017Ultrasoundof kidney| Service Date: 07/25/2017Arthroplasty of left shoulder| Service Date: 03/16/2017X-ray tomography of left shoulder| Service Date: 03/16/2017Biopsy of bladder| Service Date: 09/19/2016Radiofrequency ablation of nerve root of lumbar spine using fluoroscopic guidance| Service Date: 08/10/2016Local anesthetic lumbar epidural block| Service Date: 07/27/2016IVU - Intravenous urogram| Service Date: 07/13/2016Epidural block| Service Date: 07/06/2016Ablation - genitofemoral nerve under ultrasound| Service Date: 04/18/2016Shoulder X-ray| Service Date: 04/07/2016Genitofemoral nerve block| Service Date: 12/09/2015Ultrasound of kidney| Service Date: 10/14/2015right foot x-ray| Service Date: 09/16/2013lumbar spine eval-[facility]| Service Date: 04/01/2012Colonoscopy| Service Date: 01/31/2012MRI of lumbar spine| Service Date: 12/22/2009rthoscopy of left knee| Service Date: 02/12/2009THR - Total hip replacement| Service Date: 04/13/2003Left shoulder| Service Date: 01/1899colonoscopy 10/15retinal surgery 11/18VasectomyLumbar epidural steroid injection Medications acetaminophen(Tylenol 500 mg oral tablet), 1000 mg= 2 tab, PO, Daily amLODIPine(amLODIPine 10 mg oral tablet) atorvastatin(atorvastatin 20 mg oral tablet), See Instructions celecoxib(CeleBREX 100 mg oral capsule), 100 mg= 1 cap, PO, tid clindamycin cyanocobalamin(Vitamin B12), 0.5 tab, PO cyclobenzaprine(cyclobenzaprine 10 mg oral tablet), See Instructions, 4 refills docusate(Colace 100 mg oral capsule), 400 mg= 4 cap, PO, Daily fluticasone nasal(Flonase 50 mcg/inh nasal spray), 1 spray, each nostril, bid, 4 refills hydroCHLOROthiazide ketoconazole topical(ketoconazole 2% topical cream), 1 appl, topical, bid, 3 refills losartan(losartan 100 mg oral tablet) metFORMIN(metFORMIN 500 mg oral tablet) multivitamin(Multiple Vitamins oral capsule), 1 cap, PO, Daily omega-3 polyunsaturated fatty acids(omega-3 polyunsaturated fatty acids 1100 mg oral delayed release capsule), 1 cap, PO, bid pantoprazole(pantoprazole 40 mg oral delayed release tablet) pregabalin(pregabalin 50 mg oral capsule), 50 mg= 1 cap, PO, tid pregabalin(pregabalin 100 mg oral capsule) psyllium(Metamucil Paxton Smooth Texture 3.4 g/11 g oral powder for reconstitution), 3.4 g, PO, bid rOPINIRole(rOPINIRole 2 mg oral tablet), See Instructions sildenafil(sildenafil 100 mg oral tablet), 100 mg= 1 tab, PO, Daily, PRN spironolactone(spironolactone 25 mg oral tablet) traMADol(traMADol 50 mg oral tablet), 50 mg= 1 tab, PO, q4h, PRN zoster vaccine, inactivated(Shingrix intramuscular injection), 0.5 mL, IM, ONCE, 1 refills Allergies HYDROcodone (Moderate)hallucinations HYDROcodone BitartrateHallucinations VicodinHallucinates hylan G-F 20Swelling, Unknown penicillinsrash Social History Smoking Status Former Smoker, quit > 1 yr Alcohol - Low Risk Type:Beer, Wine Frequency:3-5 times per week 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 COPD: Father. Cigarette smoker: Father. Diabetes: Father. Lung cancer..: Mother. [place] (myocardial infarction): Father. Smoker.: Mother. Health Status Family Member(s) Family Member(s) Relationship: Mother, Age: 62 Years, Cause: lung cancer Relationship: Father, Age: 77 Years, Cause: heart failure Electronic Signature on File Electronically Reviewed/Signed by: CONNOR Dasilva Author Signature Dt/Tm:03/05/2024 02:13 PM Department of Family Medicine Department of Dermatology D[facility] Patient Care team information Care Team Personnel Name: MD Cobb Michael P Position: Physician - Family Med Member Role: Lifetime Relationship Address: [address] [place] [address] Name: DO Wright Brian R Position: Referring Member Role: Primary Care Provider Address: [facility] [address] [place] [address] Care Team Related Persons Name: CAROLANN URIAS Name: CAROLANN URIAS Name: CAROLANN URIAS"
[2024-03-20 06:20] LABS: Hematocrit (blood only) 38.3 % (42.0-52.0); Hemoglobin 13.3 g/dl (14.0-18.0); Mean Corpuscular Hemoglobin 31.9 pg (25.0-34.0); Mean Corpuscular Hgb Conc 34.7 g/dL (32.0-36.0); Mean Corpuscular Volume 91.8 fL (80.0-100.0); Mean Platelet Volume 9.8 fL (9.4-12.4); Platelet Count 246 K/uL (130-400); RDW Coefficient of Variation 12.4 % (11.5-14.5); Red Blood Count 4.17 M/uL (4.70-6.10); White Blood Count 7.51 K/ul (4.8-10.8)
[2024-03-20 06:38] LABS: BUN Creatinine Ratio 18.4 (10-20); Calcium 10.3 mg/dl (8.6-10.3); Creatinine Clr Calc Pharmacy 91.9 ml/min; Potassium 3.8 mmol/L (3.5-5.1)
[2024-03-20] MEDS: hydrALAZINE HCL 20 MG/ML VIAL IV ONE (06:52)
[2024-03-20] MEDS: Heparin IV Adult Wt-Based Standard w/ INITIAL Bolus Protocol IV STA (06:56)
[2024-03-20 07:28] LABS: ANTI-Xa, UFH(UnfractionatedHep 0.86 IU/ml (0.3-0.7)
--- NOTE | 2024-03-20 07:41 | Electrocardiogram Report ---
Test Reason : Blood Pressure : */* mmHG Vent. Rate : 112 BPM Atrial Rate : * BPM P-R Int : * ms QRS Dur : 84 ms QT Int : 316 ms P-R-T Axes : * -7 69 degrees QTcB Int : 431 ms Atrial fibrillation with rapid ventricular response Nonspecific ST abnormality Inferior leads Abnormal ECG When compared with ECG of 20-Jan-2019 15:19, Atrial fibrillation has replaced Sinus rhythm HR has increased by [address] abnormality now present Confirmed by Lupillo Bills ([id number]) on 03/20/2024 7:41:24 AM Referred By: REFERRED SELF Confirmed By: Lupillo Bills
--- NOTE | 2024-03-20 08:04 | XCELERA ---
[id number] \\[email or web address]\[id number]
--- NOTE | 2024-03-20 08:21 | Hospitalist Progress Note ---
Date of Service March 20, 2024 Assessment & Plan (1) Atrial fibrillation with RVR: (2) Influenza: (3) Hypercalcemia: (4) Hypomagnesemia: Plan 73-year-old male PMHx ankylosing spondylitis, HLD, BPH, DDD, restless leg syndrome, nausea reflux presenting to ED for ongoing cough, myalgias, and SOB. States that his was previously diagnosed with flu and although they tried to limit contact to each other, he started experiencing similar symptoms that she was. ED workup reveals no leukocytosis, sodium 135, calcium 11.2, magnesium 1.6, normal troponin. Nasal swab positive for influenza A, CXR without acute findings and chest CTA without PE. EKG did reveal A-fib with RVR (112 bpm). Patient was started on Tamiflu, heparin, and diltiazem in ED. #A-fib RVR, new onset No previous history of A-fib, likely 2/2 recent illness (influenza A). Started on heparin drip for anticoagulation in ED as well as diltiazem drip for rate control. - EKG on admission showed A-fib, rate 112; telemetry revealing A-fib rate around 90s; Echo pending - TSH 2.020, wnl, but checking T3/T4 for completeness - Mg 1.6- 2gm IV ordered, added repeat level to AM labs - Continue diltiazem drip to achieve rate control - Started on heparin- continue to completion Repeat EKG for this morning - [id number] score 3 (age, HTN, DM); HAS-BLED score 2 (age, HTN) ECHO w/ hyperdynamic EF, no wma. Borderline concentric LVH, no significant valvular disease. Notable no atrial enlargement, unclear duration of being in afib converted to NSR at 12'26am, per supervising provider, hold cardizem gtt/monitor. hold heparin gtt/start asa 81mg daily/mcot outpatient given unclear durationand could have been from acute illness. tsh wnl, t3/t4 checked. amlodipine held. monitor on telemetry/possible metoprolol PO if needed #Influenza SOB, cough, and myalgias. Recent exposure of requiring hospitalization for influenza. - No leukocytosis, CXR without acute findings, Pro-Carlos pending - Tamiflu started in ED- Continue - O2 prn; no O2 at baseline #Hypercalcemia Asymptomatic currently; H/o hypercalcemia and addressed in PCP note 01/29/2024- stable since 2018 w/ previously benign workup - Ca 11.2; WNL albumin Check Vit D given prior low and does not appear to be on any supplementation at this time - Will trend daily and monitor unless significant change #Hypomagnesemia Mg 1.6 on admission; no prior incidence of hypomagnesemia - MgSO4 2g IV - BMP am #HTN - Amlodipine, losartan #HLD - Atorvastatin #Ankylosing spondylitis - Follows with rheumatology; stable On celebrex, cautious w/ heparin gttt/monitor fro any bleeding. Remains on PPI once daily for hx GERD #Prediabetes - Metformin, continue #BPH - Follows w/ urology, tadalafil, sildenafil (prn); stable #GERD - Pantoprazole , monitor to increase as needed #?RLS - Ropinirole, pregabalin, cyclobenzaprine Dispo: Admit, PCU VTE prophylaxis: Heparin This document was dictated utilizing [employer]. Please excuse any grammatical errors that may be secondary to use of this software. Admission and Anticipated Discharge Date Admission Date: March 19, 2024 Results & Data Results & Data Vital Signs (Past 12 Hours) Vital Signs Pulse Pulse Resp BP BP Pulse Ox O2 Del Method 03/20/24 07:36 79 24 92 03/20/24 07:27 86 30 H 93 03/20/24 07:06 87 26 H 94 03/20/24 07:00 150/76 H 03/20/24 06:57 83 22 94 03/20/24 06:30 140/72 03/20/24 06:30 140/72 03/20/24 06:30 140/72 03/20/24 06:24 79 28 H 92 03/20/24 06:00 163/78 H 03/20/24 06:00 163/78 H 03/20/24 06:00 163/78 H 03/20/24 06:00 163/78 H 03/20/24 06:00 82 21 98 03/20/24 05:30 74 24 150/71 H 93 03/20/24 05:00 149/69 H 03/20/24 05:00 79 15 149/69 H 94 03/20/24 04:30 72 20 148/65 H 92 03/20/24 03:48 87 20 195/105 H 95 03/20/24 03:30 83 19 200/120 H 94 03/20/24 03:00 77 23 184/84 H 96 03/20/24 02:30 79 23 183/92 H 95 03/20/24 02:00 73 24 181/81 H 94 03/20/24 01:00 72 22 164/82 H 95 03/20/24 00:30 83 20 138/77 94 03/20/24 00:00 83 22 139/81 94 03/19/24 23:46 109 H 03/19/24 23:31 99 H 18 148/98 H 95 03/19/24 23:00 94 H 20 131/96 95 03/19/24 22:45 105 H 20 162/95 H 94 03/19/24 22:42 109 H 16 162/95 H 95 03/19/24 22:06 87 16 134/78 94 03/19/24 21:45 89 20 141/87 H 94 03/19/24 21:30 96 H 23 140/86 94 03/19/24 20:55 89 21 157/71 H 94 Room Air 03/19/24 20:39 102 H 25 H 157/71 H 94 Diagnostic Findings Chest X-Ray 03/19/24 19:10 Exam(s): XR CXR 1 VIEW EXAM: XR Chest, 1 View CLINICAL HISTORY: Reason for exam: Chest pain, nonspecific. TECHNIQUE: Frontal view of the chest. COMPARISON: 01/18/2022 FINDINGS: Lungs: No consolidation. No overt edema. Pleural space: No pleural effusion. No pneumothorax. Heart: Unremarkable. No cardiomegaly. Bones/joints: Left shoulder arthroplasty. Degenerative changes in the right shoulder. IMPRESSION: No acute findings in the chest. Electronically signed by: Julio Silverman MD 03/19/24 20:29 PM Chest CTA 03/19/24 19:52 Exam(s): CTA CHEST IV Amt: 82 mls optiray 320 EXAM: CT Angiography Chest With Intravenous Contrast CLINICAL HISTORY: Reason for exam: ro PE. TECHNIQUE: Axial computed tomographic angiography images of the chest with intravenous contrast. CTDI is 28.14 mGy and DLP is 873.63 mGy-cm. Automated exposure control was utilized for the study. A dose lowering technique was utilized adhering to the principles of ALARA. MIP reconstructed images were created and reviewed. COMPARISON: 03/14/2022 FINDINGS: Pulmonary arteries: No pulmonary embolism. Aorta: No acute findings. Normal caliber. No dissection. Lungs: Scattered atelectasis in the lungs. No consolidation or interstitial edema. Pleural space: No pleural effusion. No pneumothorax. Heart: Unremarkable. Bones/joints: No acute fracture. Soft tissues: Unremarkable. Lymph nodes: Unremarkable. IMPRESSION: No pulmonary embolism. Electronically signed by: uJlio Silverman MD 03/19/24 20:50 PM ECHOCARDIOGRAM Compared with study 2009, LV systolic function now hyperdynamic, otherwise no significant change. The left ventricle is hyperdynamic. Left ventricular ejection fraction =>70% The left ventricular wall motion There is borderline concentric left ventricular hypertrophy The right ventricle is normal in size and function No significant valvular disease PG Care Time/CCT Total # of Minutes Spent Total Time Spent with Patient: Total time spent is greater than 50% in coordination of care (as documented) at patient's floor/unit and/or counseling patient: Coding Diagnoses Atrial fibrillation with RVR I48.91 Influenza J11.1 Hypercalcemia E83.52 Hypomagnesemia E83.42
[2024-03-20 08:49] LABS: Magnesium 1.9 mg/dl (1.7-2.4)
[2024-03-20] MEDS ORDERED: amLODIPine BESYLATE 5 MG TAB PO SCH (09:00)
[2024-03-20] MEDS: FLUTICASONE PROPIONATE NA SPR 16 GM BTL SCH (09:00)
[2024-03-20] MEDS: OSELTAMIVIR PHOSPHATE 75 MG CAP PO SCH (09:01)
[2024-03-20] MEDS: CELECOXIB 100 MG CAP PO SCH (09:01)
[2024-03-20] MEDS: SPIRONOLACTONE 25 MG TAB PO SCH (09:01)
[2024-03-20] MEDS: guaiFENesin 600 MG TABCR PO SCH (09:01)
[2024-03-20] MEDS: metFORMIN HCL 500 MG TAB PO SCH (09:02)
[2024-03-20] MEDS: PANTOprazole 40 MG TAB PO SCH (09:02)
[2024-03-20] MEDS: LOSARTAN POTASSIUM 50 MG TAB PO SCH (09:03)
[2024-03-20 09:07] LABS: T4 Free Thyroxine 0.98 ng/dl (0.61-1.60)
[2024-03-20] MEDS: PREGABALIN 100 MG CAP PO SCH (09:09)
[2024-03-20 09:27] LABS: T3 Free 2.92 pg/ml (2.3-4.2)
[2024-03-20 09:40] LABS: Vitamin D, 25 Hydrox 29.1 ng/ml (30-100)
[2024-03-20] MEDS: ASPIRIN 81 MG ECTAB PO SCH (10:11)
[2024-03-20] MEDS: MAGNESIUM SULFATE / D5W 1 GM/100 ML BAG IV ONE (10:11)
--- NOTE | 2024-03-20 10:44 | Electrocardiogram Report ---
Test Reason : Blood Pressure : */* mmHG Vent. Rate : 75 BPM Atrial Rate : 75 BPM P-R Int : 192 ms QRS Dur : 98 ms QT Int : 366 ms P-R-T Axes : 34 3 66 degrees QTcB Int : 408 ms Normal sinus rhythm Normal ECG When compared with ECG of 19-Mar-2024 19:42, Sinus rhythm has replaced Atrial fibrillation Vent. rate has decreased by 37 bpm Confirmed by Lupillo Bills ([id number]) on 03/20/2024 10:44:12 AM Referred By: REFERRED SELF Confirmed By: Lupillo Bills
--- NOTE | 2024-03-20 14:06 | Discharge Summary ---
Discharge Summary Date of Service March 20, 2024 Principal Dx & Hospital Course #1 = Principal Diagnosis (1) Influenza: (2) Atrial fibrillation with RVR: (3) Hypomagnesemia: (4) Hypercalcemia: Plan 73-year-old male PMHx ankylosing spondylitis, HLD, BPH, DDD, restless leg syndrome, nausea reflux presenting to ED for ongoing cough, myalgias, and SOB. Reported his recently dx w/ flu and despite trying to limit contact, d eveloped symptoms. Biofire positive for influenza A on admission no hypoxia during stay, WBC wnl/afebrile. Chest CTA NEGATIVE for PE/Pneumonia/effusion Placed on Tamiflu PO BID, dc to complete 5 day course. Mag was 1.6 on admission and IV replacement ordered w/ repeat improved to 1.9 EKG on admission w/ NEW onset afib, rates 112. ECHO w/ hyperdynamic EF, no wma. Borderline concentric LVH, no significant valvular disease. Notable no atrial enlargement, unclear duration of being in afib TSH/T4/T3 wnl Placed on heparin/cardiazem gtt on admission and converted quickly overnight around 12:26am on 03/20 and cardizem gtt/heparin gtt discontinued and remained in NSR with rates in 60-70s Discussed w/ supervising provider and [facility] and felt that likely brought on by acute illness w/ the flu/low mag and reasonable for ASA 81mg daily despite CHADSVASC score of 3 and arrange for MCOT monitor at id and if evidence for recurrence will need switched to eliquis vs xarelto vs coumadin/other however would rec PPI increased to BID if occurs given celebrex use at baseline for his ankylosing spondylitis. Started metoprolol tartrate 25mg PO BID for HTN/rate control and discontinued amlodipine. Can convert to Toprol XL in f/u Offered additional day monitoring/overnight on telemetry however reporting feeling much better/wanting to go home and discussed w/ supervising provider who felt reasonable and to return w/ any return/worsening sx as discussed At dc, metoprolol 25mg PO BID, ASA 81mg daily. Tamiflu to complete course and encouraged continued use of incentive spirometer. MCOT ordered/encouraged to pick remover from cardiology out front on his way home. F/u PCP, MCOT results and plan for Toprol XL conversion in follow up #Hypercalcemia Noted/chronic, Vit D checked/borderline low and rec f/u PCP/start PO supplementation. Ca did improve/normalize 10.3 prior to dc #Hypomagnesemia low/replacement ordered/resolved to 1.9 on repeat but did give additoinal 1gm IV prior to dc to get closer to 2 given afib on admission/prevention recurrance #HTN Continued losartan/amlodpine on admission however stopped amlodipine/started metoprolol as above, BP 157/77 prior to dc #HLD- continue Atorvastatin #Ankylosing spondylitis - Follows with rheumatology; stable. continued home meds #Prediabetes Most recent A1c 5.7, remained on metfromin #BPH Follows w/ urology, tadalafil, sildenafil (prn); stable #GERD Pantoprazole once daily continued Notes For Next Care Provider Follow up MCOT results, switch ASA to DOAC if found to have continued evidence for afib Transition metoprolol tartrate to succinate pending f/u Monitor for development of bacterial PNA Medication Changes From Visit Amlodipine discontinued Metoprolol tartrate 25mg PO BID ASA 81mg daily Tamiflu BID x 5 day total course -- 4 more days at dc Admission HPI Per Admitting Provider 73-year-old male PMHx ankylosing spondylitis, HLD, BPH, DDD, restless leg syndrome, nausea reflux presenting to ED for ongoing cough, myalgias, and SOB. States that his was previously diagnosed with flu and although they tried to limit contact to each other, he started experiencing similar symptoms that she was. Was having cough that was occasionally productive with clear sputum, and very minimal SOB. Additionally was having generalized body aches that come and go. No point did he have chest pain, abdominal pain, N/V/D/C, or fever/chills. States he came to the ED today because he wanted to be tested for influenza and also wanted to have access to treatment if it was needed in the hospital was the only place where he could have both at the same time. He states that this is when he was informed that he was in A-fib which was new for him. Was not having true concerns of symptoms related to this, but then afterthought states that he has had episodes where he feels that his heart is fluttering at random times, he just never thought much of it. No known thyroid disease. ED workup reveals no leukocytosis, sodium 135, calcium 11.2, magnesium 1.6, normal troponin. Nasal swab positive for influenza A, CXR without acute findings and chest CTA without PE. EKG did reveal A-fib with RVR (112 bpm). Patient was started on Tamiflu, heparin, and diltiazem in ED. Please see Dr. Ivory's attestation for adjustments/additions to treatment plan. Admission Exam Per Admitting Provider General: No acute distress Skin: Warm and dry, without rashes or lesions. No cyanosis or clubbing Head: Normocephalic, atraumatic Eyes: PERRL, conjunctivae clear, sclera non-icteric ENT: External ear and ear canal without swelling; nose atraumatic; good dentition, tongue normal appearance, pharynx normal Neck: Supple, no LAD; no JVD Cardio: Irregularly irregular rhythm, tachycardic ~ 90-100s, no M/G/R, S1 and S2 normal Resp: No respiratory distress, Lungs CTA in all lobes bilaterally, no wheezes, rales, or rhonchi Abdomen: Soft, symmetric, nontender; No masses or hepatosplenomegaly; Bowel sounds normoactive MSK: No deformities; pulses palpable and equal; no edema. Neuro: Awake, alert; CN grossly intact Psych: Appropriate mood and affect; good judgement and insight. Discharge Exam General: WD/WN male sitting up in bed, NAD, wanting to go home if possible HEENT: head atraumatic, normocephalic, mmm, trachea midline Resp: even/unlabored, no significant w/c/r, on room air CV: regular rate/rhythm, converted to NSR overnight, no significant m/r/g, no pitting edema/calf tenderness GI: +BS, soft/NT no lane, voiding spontaneously MSK/Neuro: nonfocal, not confused, no slurred speech, moves all extremities Psych: AOx3, cooperative with exam Discharge Plan Discharge Items Patient Disposition: Home - Self-Care Reason For Visit: AFIB, NEW ONSET Discharge Diagnosis: Influenza, Afib, Hypomagnesemia Condition on Discharge: Good Goals: You have been hospitalized for an acute medical problem. During your stay at [facility], we have made an effort to correct the problem that brought you to the hospital while keeping you as comfortable as possible. Medications were used to bring your condition under control and your discharge instructions will include directions for any medications you should take after leaving the hospital. Please make sure you see your Primary Care Provider as part of your follow up plan. Activity: Resume your previous activity Non-emergency contact: Primary Care Provider Call non-emergency contact if: you have any medication questions, your symptoms worsen, your pain is not controlled, your pain is concerning for you and you have a fever Follow-up/Referrals: Lupillo Bills MD [Physician] - 03/20/24 (PLEASE STOP AT THE OFFICE AFTER YOU ARE DISCHARGED- THEY WILL PLACE YOUR [employer]SULTANT- OFFICE IS AWARE) Kelton Wright DO [Primary Care Provider] - 03/25/24 11:30 am Diet: Heart Healthy Addtl Attending Provider Instructions: You have been hospitalized shortness of breath, cough, joint aches/pains and found to be positive for the flu. You were started/continued on tamiflu twice daily for 5 days at discharge. You should continue the incentive spirometer to help strengthen lungs/prevent bacterial pneumonia. Imaging was negative for consolidation/pneumonia as well as negative for any blood clots. You were found to have afib on monitor and placed on cardizem drip with heparin and converted back to a normal rhythm and suspect that this was related to acute illness with the flu as well as low magnesium which normalized on repeat testing. I discussed with cardiology, and given suspected related to acute illness, recommend baby aspirin 81mg once daily and are arranging for a monitor at discharge which can be picked up and will let us know if going in/out of afib and if that is the case they may need to switch you from aspirin to eliquis/xarelto or other anticoagulation medication for stroke prevention. Your amlodipine has been STOPPED and you have been placed on METOPROLOL 25mg by mouth twice daily for blood pressure control as well as to keep you from going back into afib and hopefully that will be more than enough but recommend follow up with your primary care provider in the next 7-10 days from discharge to monitor your progress. Please return to the ER with any worsening shortness of breath, fever/chills, increased sputum production or for any palpitations/chest pain or any other symptoms concerning for you. It has been a pleasure being a part of the medical team providing for you while you have been in the hospital. Take care! Pending Studies at Discharge: No Stand-Alone Forms: My [facility], Smoking Cessation Medications and DC Order Prescriptions: New aspirin 81 mg Tablet,Delayed Release (Dr/Ec) 81 mg PO QAM Qty: 30 0RF oseltamivir [Tamiflu] 75 mg Capsule 75 mg PO BID Qty: 8 0RF metoprolol tartrate 25 mg Tablet 25 mg PO BID Qty: 60 0RF guaifenesin [Mucinex] 600 mg Tablet Extended Release 12hr 600 mg PO Q12 Qty: 14 0RF Continued clindamycin HCl 300 mg capsule 600 mg PO ONCE Qty: 4 2RF Rx Instructions: take 2 caps 1 hour prior to dental appointment sildenafil 100 mg tablet 100 mg PO DAILY PRN (Reason: sexual activity) Qty: 20 11RF Rx Instructions: administer 30 minutes to 4 hours before activity pregabalin 100 mg capsule 100 mg PO QID Qty: 360 1RF pantoprazole 40 mg tablet,delayed release (DR/EC) 40 mg PO QAM Qty: 90 3RF cyclobenzaprine 5 mg tablet 5 mg PO TID PRN (Reason: muscle spasm) Qty: 60 1RF docusate sodium [Stool Softener] 100 mg capsule 400 mg PO HS acetaminophen 500 mg capsule 1,000 mg PO HS multivit with min-folic acid [Theralogix Wire Preparation Machine Tender] 0.4 mg tablet 1 tab PO QAM ropinirole 2 mg tablet 2 mg PO UD Rx Instructions: takes 1 tab @ supper and then 2 tabs @ HS egvaztfcv-fyfpqldb-wza-hyalur [Move Free Ultra Triple Action] 40-5-3.3 mg Tablet 1 tab PO QAM [place]-3 350 mg-235 mg- 90 mg-597 mg capsule,delayed release(DR/EC) 1 cap PO TIDM psyllium husk [Fiber (psyllium husk)] 0.52 gram capsule 0.52 g PO TIDM fluticasone propionate 50 mcg/actuation spray,suspension 2 spray intranasal [facility] Rx Instructions: administer into each nostril. Supply with 3 month supply at once spironolactone 25 mg tablet 25 mg PO QAM celecoxib [Celebrex] 100 mg capsule 100 mg PO TID Rx Instructions: takes 1 tablet with every meal losartan 100 mg tablet 100 mg PO QAM atorvastatin 20 mg tablet 20 mg PO HS metformin 500 mg tablet 1,000 mg PO BIDM tadalafil 5 mg tablet 5 mg PO QDL Patient Comments: takes at lunch Vitamin B-12 50 mcg Tablet 50 mcg PO QDL Discontinued amlodipine 10 mg tablet 10 mg PO QAM Discharge Orders: Discharge Order (Routine); Ordered 03/20/24 Ordered By: Rolanda Emerson Admission Data Admit Date/Time: 03/19/24 22:46 Attending Provider: Moiz Walker Admit Provider: Karen Ivory Primary Care Provider: Kelton Wright Other Providers: Karen Ivory Hospital Stay Data Consultations 03/19/24 21:08 ED Decision to Admit Stat Diagnostic Imagining Performed Chest X-Ray 03/19/24 19:10 Exam(s): XR CXR 1 VIEW EXAM: XR Chest, 1 View CLINICAL HISTORY: Reason for exam: Chest pain, nonspecific. TECHNIQUE: Frontal view of the chest. COMPARISON: 01/18/2022 FINDINGS: Lungs: No consolidation. No overt edema. Pleural space: No pleural effusion. No pneumothorax. Heart: Unremarkable. No cardiomegaly. Bones/joints: Left shoulder arthroplasty. Degenerative changes in the right shoulder. IMPRESSION: No acute findings in the chest. Electronically signed by: Julio Silverman MD 03/19/24 20:29 PM Chest CTA 03/19/24 19:52 Exam(s): CTA CHEST IV Amt: 82 mls optiray 320 EXAM: CT Angiography Chest With Intravenous Contrast CLINICAL HISTORY: Reason for exam: ro PE. TECHNIQUE: Axial computed tomographic angiography images of the chest with intravenous contrast. CTDI is 28.14 mGy and DLP is 873.63 mGy-cm. Automated exposure control was utilized for the study. A dose lowering technique was utilized adhering to the principles of ALARA. MIP reconstructed images were created and reviewed. COMPARISON: 03/14/2022 FINDINGS: Pulmonary arteries: No pulmonary embolism. Aorta: No acute findings. Normal caliber. No dissection. Lungs: Scattered atelectasis in the lungs. No consolidation or interstitial edema. Pleural space: No pleural effusion. No pneumothorax. Heart: Unremarkable. Bones/joints: No acute fracture. Soft tissues: Unremarkable. Lymph nodes: Unremarkable. IMPRESSION: No pulmonary embolism. Electronically signed by: Julio Silverman MD 03/19/24 20:50 PM ECHOCARDIOGRAM 03/20/2024 Compared with study 2008, LV systolic function now hyperdynamic, otherwise no significant change. The left ventricle is hyperdynamic. Left ventricular ejection fraction =>70% The left ventricular wall motion There is borderline concentric left ventricular hypertrophy The right ventricle is normal in size and function No significant valvular disease Discharge Instructions Given to Patient (Per Discharging Provider) You have been hospitalized shortness of breath, cough, joint aches/pains and found to be positive for the flu. You were started/continued on tamiflu twice daily for 5 days at discharge. You should continue the incentive spirometer to help strengthen lungs/prevent bacterial pneumonia. Imaging was negative for consolidation/pneumonia as well as negative for any blood clots. You were found to have afib on monitor and placed on cardizem drip with heparin and converted back to a normal rhythm and suspect that this was related to acute illness with the flu as well as low magnesium which normalized on repeat testing. I discussed with cardiology, and given suspected related to acute illness, recommend baby aspirin 81mg once daily and are arranging for a monitor at discharge which can be picked up and will let us know if going in/out of afib and if that is the case they may need to switch you from aspirin to eliquis/xarelto or other anticoagulation medication for stroke prevention. Your amlodipine has been STOPPED and you have been placed on METOPROLOL 25mg by mouth twice daily for blood pressure control as well as to keep you from going back into afib and hopefully that will be more than enough but recommend follow up with your primary care provider in the next 7-10 days from discharge to monitor your progress. Please return to the ER with any worsening shortness of breath, fever/chills, increased sputum production or for any palpitations/chest pain or any other symptoms concerning for you. It has been a pleasure being a part of the medical team providing for you while you have been in the hospital. Take care! Supervising Physician Co-Signing Physician Notes The patient was not seen by me. The chart was reviewed. Case discussed with CONNOR Mcgrath. Agree with assessment and plan Total Time Total Time Spent Total Time Spent (In Minutes): 40 Coding Level of Care Code 59198 INP/OBS DISCH >30 MIN Diagnoses Influenza J11.1 Atrial fibrillation with RVR I48.91 Hypomagnesemia E83.42 Hypercalcemia E83.52
[2024-03-20] MEDS: METOPROLOL TARTRATE 25 MG TAB PO SCH (14:07)
[2024-03-20 14:10] VITALS: RESP 23; O2SAT 92
[2024-03-20 15:02] VITALS: BP 140/68; PULSE 60
[2024-03-20] MEDS ORDERED: rOPINIRole HCL 2 MG TABLET PO SCH (16:30)
[2024-03-20] MEDS ORDERED: ACETAMINOPHEN 500 MG TAB PO SCH (21:00)
[2024-03-20] MEDS ORDERED: DOCUSATE SODIUM 100 MG CAP PO SCH (21:00)
[2024-03-20] MEDS ORDERED: ATORVASTATIN 20 MG TAB PO SCH (21:00)
== END 2024-03-20 15:02 | disposition home or self-care (01) ==
LOC: ED 18:56 → EDINP 18:56 → SUATTDRO 22:46 → EDINP 23:05